=== PATIENT | male | born 1990 | race Caucasian/White ===

== ENCOUNTER 2018-05-03 11:17 | Emergency (ER) | payer SELFPAY ==
[2018-05-03] VITALS (14 sets, daily range): BP systolic 107–133; BP diastolic 71–80; PULSE 63–105; RESP 9–38; TEMP 36.7; O2SAT 99–100
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
[2018-05-03] MEDS: Acetaminophen 500 MG TAB 1000 MG PO (11:45)
[2018-05-03 11:55] LABS: Bilirubin Negative (Negative); Blood Negative (Negative); Clarity Clear; Glucose Negative (Negative); Ketones Negative (Negative); Leukocyte Esterase Negative (Negative); Nitrite Negative (Negative); Urobilinogen 0.2 EU/dL (Up TO 0.2)
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
[2018-05-03 12:07] LABS: *AMPHETAMINES SCREEN URINE Negative (Negative); *BARBITURATES SCREEN URINE Negative (Negative); *BENZODIAZEPINES SCREEN URINE Negative (Negative); Cannabinoids THC POSITIVE (Negative); Cocaine Screen,Urine POSITIVE (Negative); METHADONE URINE SCREEN Negative (Negative); OPIATES URINE SCREEN POSITIVE (Negative); Tricyclic Antidepressants Negative (Negative)
[2018-05-03] MEDS: Omnipaque 350 MG/ML 100 ML BTL IJ (12:22)
[2018-05-03] MEDS: Normal Saline 1,000 ML 1000 ML IV (12:30)
[2018-05-03 12:41] LABS: Abs Immature Grans 0.03 k/cumm (0.0-0.09); Absolute Basophil Count 0.05 k/cumm (0.0-0.2); Absolute Eosinophil Count 0.34 k/cumm (0.0-0.7); Absolute Lymphocyte Count 1.88 k/cumm (1.2-3.4); Absolute Monocyte Count 0.52 k/cumm (0.11-0.7); Absolute Neutrophil Count 5.49 k/cumm (1.2-6.7); Basophils % 0.6; Eosinophils % 4.1; HCT 46.1 % (40.0-50.0); Immature Grans % 0.4; Lymphocytes % 22.6; Mean Corp. HGB Concentration 32.5 g/dL (32.0-36.0); Mean Corpuscular Hemoglobin 30.9 pg (27.0-33.0); Mean Corpuscular Volume 95.1 fL (80-95); Mean Platelet Volume 8.9 fL (8.0-11.0); Monocytes % 6.3; Platelet Count 295 x1000/uL (130-400); RBC 4.85 m/cumm (4.50-6.00); RBC Distribution Width 13.4 % (11.8-14.1); White Blood Cell Count 8.31 k/cumm (4.4-10.8)
[2018-05-03 12:49] LABS: Lipase 179 U/L (73-393)
[2018-05-03 12:54] LABS: ALT 56 U/L (12-78); AST 33 U/L (15-37); Albumin 3.9 g/dL (3.4-5.0); Alkaline Phosphatase 102 U/L (46-116); Amylase 38 U/L (25-115); Anion Gap 6.3 mmol/L (3-11); BUN 11 mg/dL (7-18); Bilirubin, Total 0.6 mg/dL (0.2-1.0); CO2 29.7 mmol/L (21.0-32.0); CREATININE 0.88 mg/dL (0.70-1.30); Calcium 8.9 mg/dL (8.5-10.1); Chloride 102 mmol/L (98-107); Glucose 96 mg/dL (70-100); Potassium 4.2 mmol/L (3.5-5.1); Sodium 138 mmol/L (136-145); Total Protein 7.7 g/dL (6.4-8.2)
[2018-05-03 13:07] LABS: ETHANOL BLOOD < 3.0 mg/dL (<3)
== END 2018-05-03 13:17 | disposition home or self-care (01) ==
LOC: ER 13:40
PROVIDERS: Emergency Provider Student in an Organized Health Care Education/Training Program; PCP Family Medicine
DX: M54.40 Lumbago with sciatica, unspecified side (principal); R20.0 Anesthesia of skin; R20.2 Paresthesia of skin; F14.90 Cocaine use, unspecified, uncomplicated; V47.5XXA Car driver injured in collision with fixed or stationary object in traffic accident, initial encounter
CPT/HCPCS: 74177; 80053; 80307; 83690; 96360; 99285; 70450; 71260; 72125; 73590; 80320; 81003; 82150; 85025; 99284; J3490

== ENCOUNTER 2019-08-26 15:03 | Observation (INO) | payer OTHER, SELFPAY ==
[2019-08-26] VITALS (58 sets, daily range): BP systolic 102–163; BP diastolic 41–88; PULSE 56–100; RESP 8–29; TEMP 36.6–37.1; O2SAT 88–100
--- NOTE | 2019-08-26 15:37 | ED.GENADUL_ITS ---
Discharge Plan Disposition Patient Disposition: [facility] INPATIENT Condition: Fair Discharge Details Chief Complaint: Trauma Clinical Impression: Fracture of thoracic spine, Fracture of lumbar spine, Pneumothorax Admit Date/Time: 08/26/19 18:34 Admit Provider: Odalys Barajas Attending Provider: Odalys Barajas Primary Care Provider: Dayanara Chavez V ED Provider: Mey Alarcon Discharge Data Discharge Date/Time-TO BE ENTERED AT DEPARTURE: 08/26/19 21:15 Medical Decision Making <JOSEPH Romero - Last Filed: 08/28/19 18:29> Is a 29-year-old patient who was at work today when he was on a second story r jovan transitioning from the roofline to the ladder when he missed the ladder and fell approximately 40 feet to the ground. Patient presents via EMS with a collar in place. Patient did receive fentanyl prior to arrival. Patient is on Suboxone And reports taking a 10 mg film this morning. Patient is alert and oriented to person place and time. Patient is complaining of moderate back pain at this time. This is patient's only site of pain. Patient denies loss of consciousness, headache or dizziness. Patient denies vision change or blurred vision. Denies tinnitus. Patient denies any obvious extremity injury. Patient reports falling onto his right side and his back. Patient denies any upper or lower extremity pain, numbness, tingling or weakness. Patient does report mild abdominal pain. Patient denies any other concerns or complaints at this time. Physical exam reveals only focal findings in the back through the thoracic and lumbar spine. Mild periumbilical pain noted on exam without peritoneal signs. Patient has no other focal findings of pain. Plan to paredes scan the patient given his mechanism of injury. Plan to provide additional pain relief as he continues to be uncomfortable despite fentanyl received in route. Patient signed out pending all labs and CT imaging. <JOSEPH Rome - Last Filed: 08/26/19 21:53> Care transition to myself from Cassia Lance PA-C, with imaging and labs pending. Please see her initial documentation regarding presentation, history and exam findings. Labs reviewed, patient has acute leukocytosis with a white count of 15.8. Platelets slightly elevated at 408. Normal coagulation. Potassium slightly low at 3.1. AST slightly elevated at 54, this does appear new for the patient. Total bili slightly elevated at 1.3, has been elevated historically. Imaging reviewed by radiologist: FINDINGS: Lungs: Posterior lung dependent parenchymal changes bilaterally. Peripheral ri ght lung bulla, unchanged from 05/03/2018. Pleural space: No pleural fluid collection. Possible trace right pneumothorax Heart: Unremarkable. No cardiomegaly. No pericardial effusion. Aorta: Unremarkable. No aortic aneurysm. Lymph nodes: Unremarkable. No enlarged lymph nodes. Bones/joints: Acute fracture of the T9 and T10 vertebral bodies. Acute fracture of the L2 vertebral body. Acute fracture of the left transverse process of L1 and L2. Soft tissues: Soft tissue edema anterior to the T9 / 10 levels. IMPRESSION: 1. Acute fracture of the T9 and T10 vertebral bodies. 2. Acute fracture of the L2 vertebral body. 3. Acute fracture of the left transverse process of L1 and L2. 4. Peripheral right lung bulla, unchanged from 05/03/2018. Possible trace right pneumothorax. 5. No pleural fluid collection. FINDINGS: Liver: Normal. No mass. Gallbladder and bile ducts: Normal. No calcified stones. No ductal dilation. Pancreas: Normal. No ductal dilation. Spleen: Normal. No splenomegaly. Adrenals: Normal. No mass. Kidneys and ureters: Normal. No hydronephrosis. Stomach and bowel: Unremarkable. No obstruction. No mucosal thickening. Appendix: No evidence of appendicitis. Intraperitoneal space: Unremarkable. No free air. No significant fluid collection. Vasculature: Unremarkable. No abdominal aortic aneurysm. Lymph nodes: Unremarkable. No enlarged lymph nodes. Bladder: Unremarkable as visualized. Reproductive: Unremarkable as visualized. Bones/joints: Acute fracture of the T9 and T10 vertebral bodies. Acute fracture of the L2 vertebral body. Acute fracture of the left transverse process of L1 and L2. Prominent Schmorl's node of the inferior endplate of L4. Soft tissues: Unremarkable. IMPRESSION: 1. Acute fracture of the T9 and T10 vertebral bodies. 2. Acute fracture of the L2 vertebral body. 3. Acute fracture of the left transverse process of L1 and L2. 4. No acute intra-abdominal or pelvic findings. FINDINGS: Brain: Normal. No hemorrhage. Unremarkable white matter. No mass effect. Ventricles: Normal. No ventriculomegaly. Bones/joints: Unremarkable. No acute fracture. Sinuses: Visualized sinuses are unremarkable. No fluid levels. Mastoid air cells: Visualized mastoid air cells are well aerated. Soft tissues: Unremarkable. IMPRESSION: 1. No acute intracranial findings. 2. No acute fracture. FINDINGS: Vertebrae: No acute fracture. No subluxation. Discs/Spinal canal/Neural foramina: No disc herniations. No spinal canal stenosis. No neural foraminal narrowing. Soft tissues: Unremarkable. Lungs: Small bulla in the right lung apex, unchanged from CT chest 05/03/2018. IMPRESSION: No acute fracture or subluxation. With the findings as above, will consult with trauma at [facility]. This patient does have concern for possible pneumothorax, placed him on nasal cannula oxygen. Spoke with Dr. Parikh with trauma surgery. We discussed narcotic dosing, as suboxone is competative, he advised that patient will need increased dosing. Advised ECG, troponin to evaluate for possible blunt cardiac injury. Advised repeat cxr tomorrow to reasses the patients possible pneumothorax. Advise a TLSO bracing would likely be needed for the spine. We discussed need for transfer to the facility for further evaluation and as they do not expect any emergent need, will consult with our admitting providers here prior to transferring to their facility Consulted with Dr. Ivan with general surgery. She agrees to admission for pain management and to continue to monitor the patient's possible pneumothorax. However, awaiting callback from orthopedics. Patient received an additional 2mg of Dilaudid and 1G IV acetaminophen. Consulted with orthopedics, we are unable to get the recommended TLSO brace until middle of next week, will call [facility] again to discuss possible transfer in the hopes of a more expeditious management for the patient. EKG was obtained when patient initially arrived. This was reviewed by Dr. Villegas. Patient has criteria for LVH. Patient is otherwise in a normal sinus rhythm with a rate of 75. No STEMI noted. Troponin less than 0.05. I discussed transfer with the patient for further evaluation with trauma surgery as well as early bracing. Patient refuses transfer. He prefer to stay here. He does understand that bracing is not possible at this time and that we do not have trauma surgery here. Augmented the patient's above pain management with Toradol. He reports vast improvement rates his pain at a 3 out of 10 at this time. Spoke with orthopedics who advised a abdominal binder may be of benefit in the interim while awaiting TLSO. Spoke with general surgery once again who agrees to admission. At this time, the plan is for the patient to obtain abdominal binder in the interim to help with discomfort. Patient will hopefully be able to be discharged home tomorrow if pain continues to be managed well pending reevaluation of his pneumothorax. Orthopedics will order TLSO brace and he understands that he will receive this as an outpatient. Patient was able to stand at bedside without assistance. Again, patient's pain is well managed. He was transferred up to the floor for continued observation and pain management. HPI <JOSEPH Romero - Last Filed: 08/28/19 18:29> General Date/Time Provider Initiated Documentation: 08/26/19 15:07 . HPI Narrative: This is a 29-year-old patient who fell approximately 2-2 1/2 stories from a ladder when getting off of a roof transitioning to a ladder missed and fell to the ground directly landing on his right side as well as lower back. Patient denies striking head. Denies loss of consciousness. Denies headache, dizziness, nausea, vomiting at this time. Denies any vision change or tinnitus. Patient denies neck pain although is in a cervical collar at this time placed by EMS. Patient reports he was nonambulatory at the scene but denies numbness, tingling or weakness of arms or legs. Patient denies chest pain difficulty beating shortness of breath or wheezing. Denies pain with deep breathing. Patient reports lower back pain as well as anterior mid abdominal pain. Abdominal pain is mild lower back pain is severe reported as 10 out of 10. Patient denies any radiating pain into his legs. Again denies any numbness, tingling or weakness of lower extremities. Patient has no other complaints or concerns at this time. Patient reports he did take Suboxone this morning which he is prescribed to 20 mg film. Denies any other drug or alcohol use today. History of IV heroin use, in recovery. Related Data Home Medications Medication Instructions Recorded Confirmed ibuprofen [IBU] 800 mg PO TID #30 tab 08/27/19 08/28/19 lorazepam 1 mg PO BID PRN #10 tab 08/27/19 08/28/19 oxycodone 5 - 10 mg PO Q4H PRN PRN #30 tab 08/27/19 08/28/19 Previous Rx's Medication Instructions Recorded ibuprofen [IBU] 800 mg PO TID #30 tab 08/27/19 lorazepam 1 mg PO BID PRN #10 tab 08/27/19 oxycodone 5 - 10 mg PO Q4H PRN PRN #30 tab 08/27/19 Allergies Allergy/AdvReac Type Severity Reaction Status Date / Time Sulfa (Sulfonamide Allergy Unknown Unverified 08/28/19 05:22 Antibiotics) gabapentin AdvReac Mild passes out Unverified 08/28/19 05:22 General Stated Complaint: Trauma DOTTIE: 2 Review of Systems <JOSEPH Romero - Last Filed: 08/28/19 18:29> All systems reviewed & are unremarkable except as noted in HPI and below Constitutional Constitutional: Denies fatigue and Denies headache(s) Eyes Eyes: Denies blurry vision, Denies diplopia, Denies loss of vision, Denies other visual disturbances and Denies eye pain ENT Ears, Nose, Mouth, and Throat: Denies otalgia, Denies headache(s), Denies nasal discharge and Denies neck pain Cardiovascular Cardiovascular: Denies chest pain, Denies diaphoresis, Denies palpitations and Denies dyspnea on exertion Respiratory Respiratory: Denies cough and Denies dyspnea on exertion Gastrointestinal Gastrointestinal: Reports abdominal pain, Denies diarrhea, Denies nausea and Denies vomiting Musculoskeletal Musculoskeletal: Denies abnormal gait, Reports back pain, Denies deformity, Denies limited range of motion, Denies neck pain, Denies numbness, Denies radiating pain into limb and Denies tingling Neurologic Neurologic: Denies abnormal speech, Denies abnormal gait, Denies headache(s), Denies lack of coordination, Denies loss of vision, Denies numbness, Denies tingling and Denies paresthesias Endocrine Endocrine: Denies fatigue and Denies palpitations PFSH <JOSEPH Romero - Last Filed: 08/28/19 18:29> Social History Smoking/Tobacco Use Status: Current every day Alcohol Intake: never Drug use: Occasionally Substance use type: former substance user Do you feel safe at home: Yes Do you feel safe in your relationship?: Yes Exam <JOSEPH Romero - Last Filed: 08/28/19 18:29> Narrative Exam Narrative: CONST: Uncomfortable. Well hydrated. Alert and alert. HENMT: Head nomocephalic, normal to inspection. Atraumatic. Nursing staff reports a hematoma was apparent on the right forehead area which is no longer apparent. Hearing grossly normal. External ear canal no erythema or swelling. TM normal bilaterally. Nose normal to inspection. No rhinnorhea. Normal facial exam. Oral mucosa normal. Tounge normal. Dentition normal. Normal posterior oropharynx. Uvula midline. EYES: General normal appearance. Alignment normal. Eyelids normal. Conjunctiva normal. Sclera normal. PERRL. Extraocular movements intact. NECK: Normal visual inspection. No lymphadenopathy. Trachea midline. No Midline tenderness. Cervical collar in place. CHEST: Normal insepection of the chest. No palpable chest pain with palpation. RESP: Normal respiratory effort. Speaking full sentences. No cough. No wheezing. No retractions. Clear to auscaltation. Breath sound equal and present bilaterally. CARDIO: No JVD. Normal PMI. Regular Rate. Regular Rhythm. Normal peripheral pulses. GI: Normal inspection of abdomen. No distension. Soft. Mild periumbilical tenderness.. Bowel sounds present in all 4 quadrants. No rebound. No gaurding. No peritoneal signs MUSCULOSKELETAL: FROM of all extremities. Benign extremity exam. Distal neurovascularly intact. Sensation intact distally. Strength equal bilaterally. Small abrasion noted to the left anterior wick. Back: No notable cervical spine tenderness over the midline. Mild T-spine tenderness over the midline, moderate lumbar tenderness with palpation over the midline. An abrasion is present over the right buttocks posteriorly. SKIN: Normal. Dry. No rashes. NEURO: Alert and awake. Speech clear. PSYCH: Normal affect. Cooperative. Course <JOSEPH Romero - Last Filed: 08/28/19 18:29> Vital Signs Vital signs: Vital Signs Temperature 37.1 C 08/26/19 15:14 Pulse 83 08/26/19 15:14 Respiratory Rate 22 08/26/19 15:14 Blood Pressure 153/69 H 08/26/19 15:14 Pulse Oximetry 96 08/26/19 15:14 Temperature 37.1 C 08/26/19 15:14 Temperature Source Skin 08/26/19 15:14 Pulse 83 08/26/19 15:14 Respiratory Rate 22 08/26/19 15:14 Respiratory Effort Non-Labored 08/26/19 15:26 Respiratory Depth Normal 08/26/19 15:26 Respiratory Pattern Normal 08/26/19 15:26 Blood Pressure 153/69 H 08/26/19 15:14 Blood Pressure Position Supine 08/26/19 15:14 Pulse Oximetry 96 08/26/19 15:14 Oxygen Delivery Method Room Air 08/26/19 15:14 Oxygen Flow Rate 0 08/26/19 15:14 Pain Level 10 08/26/19 15:14 Sign Out <JOSEPH Romero - Last Filed: 08/28/19 18:29> Sign Out Data: Sign Out Comment: Trauma, fell 40ft. C/o abd and back pain. Pending all imaging and labs at sign out. Last updated by Radha Garcia PA at 08/26/19 16:40
[2019-08-26] MEDS: HYDROmorphone 2 MG/ML VIAL 1 MG IVP ×2 (15:54→16:56)
[2019-08-26 15:58] LABS: Abs Immature Grans 0.23 k/cumm (0.0-0.09); HCT 43.1 % (40.0-50.0); HGB 14.5 g/dL (13.5-17.5); Mean Corp. HGB Concentration 33.6 g/dL (32.0-36.0); Mean Corpuscular Hemoglobin 30.8 pg (27.0-33.0); Mean Corpuscular Volume 91.5 fL (80-95); Mean Platelet Volume 9.3 fL (8.0-11.0); Platelet Count 408 x1000/uL (130-400); RBC 4.71 m/cumm (4.50-6.00); RBC Distribution Width 12.5 % (11.8-14.1); White Blood Cell Count 15.81 k/cumm (4.4-10.8)
[2019-08-26 16:17] LABS: PTT Activated 25.8 sec (21.0-31.4); Prothrombin Time 9.9 sec (9.3-11.0)
--- NOTE | 2019-08-26 16:17 | DI.CT_ITS ---
EXAM: CT HEAD CERVICAL SPINE WO CLINICAL HISTORY: trauma, fell 40 ft. TECHNIQUE: Imaging Protocol: Axial computed tomography images with coronal and sagittal reformatted images were created and reviewed COMPARISON: CT HEAD CERVICAL SPINE WO from 05/03/2018 FINDINGS: Head CT Ventricles and Extra axial spaces: Normal in size and morphology for the patient's age. Hemorrhage: None. Cerebral parenchyma: Normal. Midline shift: None. Brainstem/Cerebellum: Normal. Calvarium: Normal. Visualized Paranasal sinuses/Mastoids: Clear. IMPRESSION: No acute abnormality. FINDINGS: Cervical Spine CT BONES: Vertebral body heights are maintained. Intervertebral disc spaces are normal. Alignment is nor mal. There is no evidence of acute fracture. SOFT TISSUES: No paraspinal hematoma. The airway appears intact. No significant degenerative disc changes and facet degenerative changes are seen . IMPRESSION: Degenerative changes, no acute abnormality. DATA REPOSITORY: All CT scans at this facility are submitted to the National Radiology Data Registry (NRDR) Dose Index Registry (DIR) with the [employer] (ACR). RADIATION OPTIMIZATION: All CT scans at this facility use at least one of these dose optimization te chniques: automated exposure control; mA and/or kV adjustment per patient size (includes targeted exa ms where dose is matched to clinical indication); or iterative reconstruction.
--- NOTE | 2019-08-26 16:23 | DI.CT_ITS ---
EXAM: CT CHEST/ABD/PEL W CLINICAL HISTORY: pain, abd and lower back, fell 40 ft, trauma TECHNIQUE: Post IV and without oral contrast. COMPARISON: from 05/03/2018 FINDINGS: Chest CT: The heart and great vessels appear intact. There are no pleural or pericardial effusions . There is a tiny right pneumothorax. A right apical bulla is noted. There are posterior dependent changes in both lungs. No displaced rib fractures are seen. There is a mild compression fracture o f T9 and T10. There are no retropulsed fragments or posterior element involvement. There is a small amount of paraspinal hematoma at these levels. Abdomen/pelvic CT: There are fractures of the left transverse processes of L1 and L2. There is a fra cture of the anterior superior corner of the L2 vertebral body. No pelvic or proximal femoral fractu res are seen. There is some streak artifact secondary to patient's arm positioning. No liver, splen ic, renal or pancreatic injury is identified. The adrenals are unremarkable. There is no free air o r free fluid. No bowel wall thickening or dilatation is seen. The great vessels appear intact. Americo dder is intact. IMPRESSION: 1. Tiny right pneumothorax. T9-T10 vertebral body fractures. 2. Fracture of the L2 vertebral body as well as the left transverse processes of L1 and L2. No abdom inal organ injury is identified.
[2019-08-26 16:24] LABS: ALT 40 U/L (16-63); AST 54 U/L (15-37); Albumin 4.6 g/dL (3.4-5.0); Alkaline Phosphatase 105 U/L (46-116); Anion Gap 9.7 mmol/L (3-11); BUN 9 mg/dL (7-18); Bilirubin, Total 1.3 mg/dL (0.2-1.0); CO2 30.3 mmol/L (21.0-32.0); CREATININE 0.83 mg/dL (0.70-1.30); Calcium 8.8 mg/dL (8.5-10.1); Chloride 102 mmol/L (98-107); Glucose 147 mg/dL (74-106); Potassium 3.1 mmol/L (3.5-5.1); Sodium 142 mmol/L (136-145); Total Protein 7.4 g/dL (6.4-8.2)
[2019-08-26] MEDS: Omnipaque 350 MG/ML 100 ML BTL IJ (16:25)
[2019-08-26 16:26] LABS: Absolute Eosinophil Count 0.16 k/cumm (0.0-0.7); Absolute Lymphocyte Count 2.69 k/cumm (1.2-3.4); Absolute Monocyte Count 0.79 k/cumm (0.11-0.7); Absolute Neutrophil Count 12.02 k/cumm (1.2-6.7); Atypical Lymphocytes % 2
[2019-08-26 16:27] LABS: Diff Comment Manual Differential; RBC Morphology Normal
--- NOTE | 2019-08-26 16:52 | DI.VRAD_ITS ---
Addendum created by Felix Harmon MD on 08/26/2019 5:49:09 PM EST On the sagittal images, acute nondisplaced fracture of L3. Only mild loss of height of T9. No encroachment on the thoracic or lumbar spinal canal. Examination results of the patient were discussed with Mey Amaral on 08/26/2019 at 5:48 PM EST [employer]. Initial report created on 08/26/2019 4:51:14 PM EST PROCEDURE INFORMATION: Exam: CT Chest With Contrast Exam date and time: 08/26/2019 4:21 PM Age: 29 years old Clinical indication: Low back pain, Fall from 40+ feet TECHNIQUE: Imaging protocol: Computed tomography of the chest with intravenous contrast. COMPARISON: CT Private^TRAUMA CAP (Adult) 05/03/2018 11:50 AM FINDINGS: Lungs: Posterior lung dependent parenchymal changes bilaterally. Peripheral right lung bulla, unchanged from 05/03/2018. Pleural space: No pleural fluid collection. Possible trace right pneumothorax Heart: Unremarkable. No cardiomegaly. No pericardial effusion. Aorta: Unremarkable. No aortic aneurysm. Lymph nodes: Unremarkable. No enlarged lymph nodes. Bones/joints: Acute fracture of the T9 and T10 vertebral bodies. Acute fracture of the L2 vertebral body. Acute fracture of the left transverse process of L1 and L2. Soft tissues: Soft tissue edema anterior to the T9 / 10 levels. IMPRESSION: 1. Acute fracture of the T9 and T10 vertebral bodies. 2. Acute fracture of the L2 vertebral body. 3. Acute fracture of the left transverse process of L1 and L2. 4. Peripheral right lung bulla, unchanged from 05/03/2018. Possible trace right pneumothorax. 5. No pleural fluid collection. PROCEDURE INFORMATION: Exam: CT Abdomen And Pelvis With Contrast Exam date and time: 08/26/2019 4:21 PM Age: 29 years old Clinical indication: Low back pain, Fall from 40+ feet TECHNIQUE: Imaging protocol: Computed tomography of the abdomen and pelvis with intravenous contrast. COMPARISON: CT Private^TRAUMA CAP (Adult) 05/03/2018 11:50 AM FINDINGS: Liver: Normal. No mass. Gallbladder and bile ducts: Normal. No calcified stones. No ductal dilation. Pancreas: Normal. No ductal dilation. Spleen: Normal. No splenomegaly. Adrenals: Normal. No mass. Kidneys and ureters: Normal. No hydronephrosis. Stomach and bowel: Unremarkable. No obstruction. No mucosal thickening. Appendix: No evidence of appendicitis. Intraperitoneal space: Unremarkable. No free air. No significant fluid collection. Vasculature: Unremarkable. No abdominal aortic aneurysm. Lymph nodes: Unremarkable. No enlarged lymph nodes. Bladder: Unremarkable as visualized. Reproductive: Unremarkable as visualized. Bones/joints: Acute fracture of the T9 and T10 vertebral bodies. Acute fracture of the L2 vertebral body. Acute fracture of the left transverse process of L1 and L2. Prominent Schmorl's node of the inferior endplate of L4. Soft tissues: Unremarkable. IMPRESSION: 1. Acute fracture of the T9 and T10 vertebral bodies. 2. Acute fracture of the L2 vertebral body. 3. Acute fracture of the left transverse process of L1 and L2. 4. No acute intra-abdominal or pelvic findings. Dictated and Authenticated by: Felix Harmon MD. Ordering:STACY Garcia MD
--- NOTE | 2019-08-26 16:59 | DI.VRAD_ITS ---
PROCEDURE INFORMATION: Exam: CT Head Without Contrast Exam date and time: 08/26/2019 4:16 PM Age: 29 years old Clinical indication: Injury; Initial encounter; Blunt trauma; Fall from 40+ feet TECHNIQUE: Imaging protocol: Computed tomography of the head without contrast. COMPARISON: CT HEAD CERVICAL SPINE WO 05/03/2018 11:45 AM FINDINGS: Brain: Normal. No hemorrhage. Unremarkable white matter. No mass effect. Ventricles: Normal. No ventriculomegaly. Bones/joints: Unremarkable. No acute fracture. Sinuses: Visualized sinuses are unremarkable. No fluid levels. Mastoid air cells: Visualized mastoid air cells are well aerated. Soft tissues: Unremarkable. IMPRESSION: 1. No acute intracranial findings. 2. No acute fracture. PROCEDURE INFORMATION: Exam: CT Cervical Spine Without Contrast Exam date and time: 08/26/2019 4:16 PM Age: 29 years old Clinical indication: Injury; Initial encounter; Blunt trauma; Fall from 40+ feet TECHNIQUE: Imaging protocol: Computed tomography images of the cervical spine without contrast. COMPARISON: CT HEAD CERVICAL SPINE WO 05/03/2018 11:45 AM FINDINGS: Vertebrae: No acute fracture. No subluxation. Discs/Spinal canal/Neural foramina: No disc herniations. No spinal canal stenosis. No neural foraminal narrowing. Soft tissues: Unremarkable. Lungs: Small bulla in the right lung apex, unchanged from CT chest 05/03/2018. IMPRESSION: No acute fracture or subluxation. Dictated and Authenticated by: Felix Harmon MD. Ordering:STACY Garcia MD
[2019-08-26] MEDS: HYDROmorphone 2 MG/ML VIAL IVP ×3 (17:35→20:52)
[2019-08-26] MEDS: ACETAMINOPHEN 1,000 MG/100 ML BTL 400 MG IVPB (17:45)
[2019-08-26] MEDS: HYDROmorphone 2 MG/ML VIAL (17:46)
[2019-08-26 17:53] LABS: Troponin I < 0.05 ng/Ml (<0.06)
[2019-08-26] MEDS: Ketorolac 30 MG/ML VIAL IVP (18:22)
[2019-08-26] MEDS: Nicotine 21 MG/24 HR PATCH TD (19:02)
--- NOTE | 2019-08-26 20:35 | NUR.NOTE ---
1900- reassessment shows pt with sao2 of 88% room air and decreased/very difficult to hear lung sounds to RLL. pt denies SOA, no respiratory distress noted. pt does voice pain to lungs with inspiration. IS given to pt with instructions on use with pt returning demonstration. o2/NC/2l placed with JOSEPH Mathias bedside. no distress noted. Nursing Note:
--- NOTE | 2019-08-26 20:38 | NUR.NOTE ---
[id number] JOSEPH Mathias administer 2mg Dilaudid IV and 2 tabs PO oxycodone now per admission orders prior to transferring pt to med surg. pt will be medicated and transfered now.
[2019-08-26] MEDS: oxyCODONE 5 MG TAB (20:51)
--- NOTE | 2019-08-26 21:00 | NUR.NOTE ---
abdominal binder placed without incident pt tolerated well. Nursing Note:
[2019-08-26] MEDS: Lactated Ringers 1,000 ML 30 ML IV (21:56)
[2019-08-26] MEDS: oxyCODONE 10 MG TAB PO (22:04)
[2019-08-27] MEDS: HYDROmorphone 2 MG/ML VIAL IVP ×4 (03:20→10:52)
[2019-08-27 03:25] VITALS: BP 132/82; PULSE 73; RESP 17; TEMP 36.6; O2SAT 98
[2019-08-27 07:14] LABS: Abs Immature Grans 0.02 k/cumm (0.0-0.09); Absolute Basophil Count 0.01 k/cumm (0.0-0.2); Absolute Eosinophil Count 0.04 k/cumm (0.0-0.7); Absolute Lymphocyte Count 1.63 k/cumm (1.2-3.4); Absolute Monocyte Count 0.65 k/cumm (0.11-0.7); Basophils % 0.1; Eosinophils % 0.4; HCT 41.2 % (40.0-50.0); HGB 13.5 g/dL (13.5-17.5); Immature Grans % 0.2 %; Lymphocytes % 17.2; Mean Corp. HGB Concentration 32.8 g/dL (32.0-36.0); Mean Corpuscular Hemoglobin 30.5 pg (27.0-33.0); Mean Corpuscular Volume 93.2 fL (80-95); Mean Platelet Volume 9.8 fL (8.0-11.0); Monocytes % 6.8; Neutrophils % 75.3; Platelet Count 320 x1000/uL (130-400); RBC 4.42 m/cumm (4.50-6.00); RBC Distribution Width 12.8 % (11.8-14.1); White Blood Cell Count 9.49 k/cumm (4.4-10.8)
[2019-08-27 07:16] LABS: Absolute Neutrophil Count 7.15 k/cumm (1.2-6.7)
[2019-08-27 07:22] VITALS: BP 134/74; PULSE 71; RESP 17; TEMP 37.4; O2SAT 98
[2019-08-27 07:26] LABS: BUN 8 mg/dL (7-18); CREATININE 0.73 mg/dL (0.70-1.30); Calcium 8.3 mg/dL (8.5-10.1); Chloride 105 mmol/L (98-107); Glucose 111 mg/dL (74-106); Potassium 3.9 mmol/L (3.5-5.1); Sodium 142 mmol/L (136-145)
--- NOTE | 2019-08-27 08:02 | PDOC.CMIN ---
- If Service Date Differs Date of service: 08/27/19 Time of Service: 08:02 Care Management Initial Assess REASON FOR HOSPITALIZATION:: Fall with fracture T9,T10, L1 and L2 PAST MEDICAL HISTORY/PAST SURGICAL HISTORY:: No significant past medical or surgical history documented. PREVIOUS FUNCTIONAL STATUS/SOCIAL/FAMILY SUPPORTS:: Nikita lives in a transition house in [facility] with 4 other people.He works for [employer] which is where his injury occurred. Nikita has 2 brothers and 2 sisters. His father is his main support . His mother of skin cancer. Nikita is independent with all care and activities. CURRENT FUNCTIONAL STATUS:: Nikita was sitting up in bed when CM met with him. He was polite and answered questions but did not volunteer much additinal information. He shared that he believes he will neeed to be in the hospital until mid-week when he will be able to get a TLSO brace. He stated that he is having a lot of pain but that when he is still, it is tolerable. He stated he had just returned from Radiology and had been required to move a lot which increased his discomfort. ADVANCE DIRECTIVES:: none on file Has patient been provided with information about the portal?: No Did the patient sign up for the portal?: No CODE STATUS:: Full Code INSURANCE COVERAGE / FINANCIAL ISSUES:: Self pay CURRENT HOME/COMMUNITY SERVICES/EQUIPMENT:: None currently. Will need a back brace before discharge. PRIMARY CARE PHYSICIAN:: Dayanara Chavez POTENTIAL DISCHARGE NEEDS:: Nikita needs a back brace and follow up with his PCP and discharge plan of care PATIENT/FAMILY EDUCATION NEEDS:: Discharge plan, limitations, follow up plan, Ask me Three TRANSPORTATION:: via private vehicle with family when ready. PLAN:: Nikita will be discharged home with no new services. He will follow up with his providers and discharge plan of care. He will likely be referred to the pain clinic for management of his symptoms. CM will continue to support patient and his discharge planning needs.
[2019-08-27] MEDS: oxyCODONE 10 MG TAB PO (08:28)
[2019-08-27] MEDS: Nicotine 14 MG/24 HR PATCH TD (08:29)
[2019-08-27] MEDS: Normal Saline Flush 10 ML SYR IVP (08:30)
--- NOTE | 2019-08-27 08:57 | DI.RAD_ITS ---
EXAM: XR CHEST 2V PA LATERAL INDICATION: Right pneumothorax. COMPARISON: No exams were available for comparison TECHNIQUE: 2D digital imaging was performed. FINDINGS: There are increased densities in the posterior lung bases as seen on prior CT. No pneumothorax is v isible. No air is seen outside the chest wall. The heart size is normal. Compression fractures of the T9 and T10 vertebral bodies are unchanged from previous CT. IMPRESSION: Persistent posterior basilar atelectasis. No pneumothorax is visible.
--- NOTE | 2019-08-27 09:21 | DI.VRAD_ITS ---
PROCEDURE INFORMATION: Exam: XR Chest, 2 Views Exam date and time: 08/27/2019 9:03 AM Age: 29 years old Clinical indication: Other: Right pneumothorax; Additional info: Right pneumothorax f/u on images done yesterday TECHNIQUE: Imaging protocol: XR of the chest Views: 2 views. COMPARISON: CT CHEST/ABD/PEL W 08/26/2019 4:23:53 PM CR CHEST 2 VIEWS PA,LAT 02/16/2018 8:39 AM FINDINGS: Lungs: Bibasilar/posterior lower lobe opacities with blunting of the costophrenic angles may represent parenchymal changes previously seen on recent CT. Cannot entirely exclude small pleural effusions. No pneumothorax. Pleural space: See Lungs Finding. Heart/Mediastinum: Unremarkable. No cardiomegaly. Bones/joints: Compression deformities of T9 and T10 vertebral bodies previously seen on recent CT. IMPRESSION: 1. Bibasilar/posterior lower lobe opacities with blunting of the costophrenic angles may represent parenchymal changes previously seen on recent CT. Cannot entirely exclude small pleural effusions. No pneumothorax. 2. Compression deformities of T9 and T10 vertebral bodies previously seen on recent CT. Dictated and Authenticated by: Migel Gallegos MD. Ordering:CHASE Morrow MD
--- NOTE | 2019-08-27 10:28 | W.PM.HP.N ---
Date of service: 08/27/19 Time of Service: 10:28 Assessment and Plan Assessment and plan (1) Fall: Status: Acute Assessment and plan: A possible small right pneumothorax was noted on CT. His CXR today does not show any pneumothorax and his exam is normal. The patient has not identified any new areas of pain. Qualifiers: Encounter type: initial encounter Qualified Code(s): W19.XXXA - Unspecified fall, initial encounter (2) Fracture of body of vertebra: Status: Acute Assessment and plan: The main issue will be pain control. I have added ibuprofen and ativan. Once this is managed he can be discharged. A TLSO brace will be ordered by orthopedics. For now the patient is getting some comfort from the abdominal binder. A referral will be made to the pain clinic. History of Present Illness Narrative: This patient fell off a roof, falling 2-1/2 stories, and landed on a packed snow/ice surface yesterday afternoon. He immediately complained of back pain. He did not have any loss of consciousness or any other obvious injuries. Evaluation in the emergency department with a CT scan of the head, neck, chest abdomen and pelvis, thoracic and lumbar spine revealed injuries of the vertebral bodies of T9/T10 as well as L2/L3. There is no encroachment of the spinal column and the patient does not have any neurologic complaints. He also had fractures of the L1/L2 transverse processes. Today he reports no new symptoms. He has no blurry vision. He did have a small bite of his lower lip but otherwise no jaw or teeth complaints. He is having no shortness of breath, no abdominal pain. He is tolerating a diet without nausea or vomiting. He reports no extremity weakness or tingling. Review of Systems Constitutional Constitutional: Denies fatigue and Denies headache(s) Eyes Eyes: Denies change in vision ENT Ears, Nose, Mouth, and Throat: Denies headache(s) and Denies neck mass Cardiovascular Cardiovascular: Denies chest pain, Denies edema, Denies palpitations and Denies dyspnea Respiratory Respiratory: Denies cough, Denies dyspnea and Denies wheezing Gastrointestinal Gastrointestinal: Denies abdominal pain, Denies hematochezia and Denies change in bowel habits Genitourinary Genitourinary: Denies dysuria Musculoskeletal Musculoskeletal: Denies joint swelling Integumentary/Breasts Skin/Breast: Denies new lesions and Denies rash Neurologic Neurologic: Denies confusion, Denies headache(s) and Denies focal weakness Psychiatric Psychiatric: Reports system reviewed and no additional complaints, except as docu and Denies confusion Endocrine Endocrine: Denies fatigue and Denies palpitations Hematologic/Lymphatic Hematologic/Lymphatic: Denies easy bleeding and Denies lymphadenopathy Allergic/Immunologic Allergic/Immunologic: Denies wheezing PFSH Social History Smoking/Tobacco Use Status: Current every day Alcohol Intake: never Drug use: Occasionally Substance use type: former substance user Do you feel safe at home: Yes Do you feel safe in your relationship?: Yes Meds Home Medications and Allergies Home Medications Medication Instructions Recorded Confirmed Type buprenorphine-naloxone [Suboxone] 20 film SUBLINGUAL DAILY 08/26/19 08/26/19 History Allergies Allergy/AdvReac Type Severity Reaction Status Date / Time Sulfa (Sulfonamide Allergy Unknown Unverified 08/26/19 15:21 Antibiotics) gabapentin AdvReac Mild passes out Unverified 08/26/19 15:21 Exam Narrative Exam Narrative: Alert PERRLA No cervical spine tenderness. Jaw is aligned Lungs CTA bilaterally although deep inspiration causes pain Heart RRR Abdomen soft, nontender, atraumatic No focal neurologic deficits Results Labs Result diagrams: 08/27/19 06:12 08/27/19 06:12 Labs: Laboratory Results - last 24 hr 08/26/19 08/26/19 08/26/19 15:40 15:40 15:40 WBC 15.81 H RBC 4.71 Hgb 14.5 Hct 43.1 MCV 91.5 MCH 30.8 MCHC 33.6 RDW 12.5 Plt Count 408 H MPV 9.3 Immature Gran % See Differential Neutrophils % 74.0 Band Neutrophils % 2.0 Lymphocytes % 15.0 Atypical Lymphs % 2 Monocytes % 5.0 Eosinophils % 1.0 Basophils % 0.0 Metamyelocytes % 1.0 Absolute Neutrophils 12.02 H Absolute Lymphocytes 2.69 Absolute Monocytes 0.79 H Absolute Eosinophils 0.16 Absolute Basophils 0.00 Differential Comment Manual differential RBC Morphology Normal PT 9.9 INR 1.0 APTT 25.8 Sodium 142 Potassium 3.1 L Chloride 102 Carbon Dioxide 30.3 Anion Gap 9.7 BUN 9 Creatinine 0.83 Estimated GFR/1.73 m2 >= 60.00 Glucose 147 H Calcium 8.8 Total Bilirubin 1.3 H AST 54 H ALT 40 Alkaline Phosphatase 105 Troponin I Total Protein 7.4 Albumin 4.6 Patient ABO/Rh Antibody Screen 08/26/19 08/26/19 08/27/19 15:40 15:40 06:12 WBC RBC Hgb Hct MCV MCH MCHC RDW Plt Count MPV Immature Gran % Neutrophils % Band Neutrophils % Lymphocytes % Atypical Lymphs % Monocytes % Eosinophils % Basophils % Metamyelocytes % Absolute Neutrophils Absolute Lymphocytes Absolute Monocytes Absolute Eosinophils Absolute Basophils Differential Comment RBC Morphology PT INR APTT Sodium 142 Potassium 3.9 D Chloride 105 Carbon Dioxide 28.0 Anion Gap 9.0 BUN 8 Creatinine 0.73 Estimated GFR/1.73 m2 >= 60.00 Glucose 111 H Calcium 8.3 L Total Bilirubin AST ALT Alkaline Phosphatase Troponin I < 0.05 Total Protein Albumin Patient ABO/Rh O Positive Antibody Screen Negative 08/27/19 06:12 WBC 9.49 D RBC 4.42 L Hgb 13.5 Hct 41.2 MCV 93.2 MCH 30.5 MCHC 32.8 RDW 12.8 Plt Count 320 MPV 9.8 Immature Gran % 0.2 Neutrophils % 75.3 Band Neutrophils % Lymphocytes % 17.2 Atypical Lymphs % Monocytes % 6.8 Eosinophils % 0.4 Basophils % 0.1 Metamyelocytes % Absolute Neutrophils 7.15 H Absolute Lymphocytes 1.63 Absolute Monocytes 0.65 Absolute Eosinophils 0.04 Absolute Basophils 0.01 Differential Comment RBC Morphology PT INR APTT Sodium Potassium Chloride Carbon Dioxide Anion Gap BUN Creatinine Estimated GFR/1.73 m2 Glucose Calcium Total Bilirubin AST ALT Alkaline Phosphatase Troponin I Total Protein Albumin Patient ABO/Rh Antibody Screen Last Vital Signs Temp 99.3 F 08/27/19 07:22 Pulse 71 08/27/19 07:22 Resp 17 08/27/19 07:22 BP 134/74 08/27/19 07:22 Pulse Ox 98 08/27/19 07:22
[2019-08-27 10:47] VITALS: O2SAT 94
[2019-08-27] MEDS: Acetaminophen 325 MG TAB 650 MG PO (10:53)
[2019-08-27 11:47] VITALS: BP 134/69; PULSE 78; RESP 14; TEMP 37.2; O2SAT 92
[2019-08-27] MEDS: Ibuprofen 800 MG TAB PO (14:20)
[2019-08-27] MEDS: oxyCODONE 5 MG TAB PO (14:21)
[2019-08-27 16:09] VITALS: BP 126/80; PULSE 74; RESP 18; TEMP 37.2; O2SAT 96
--- NOTE | 2019-08-27 16:43 | W.PM.DS.N ---
Date of service: 08/27/19 Time of Service: 16:44 DS: Diagnosis Discharge Diagnosis (1) Fall: Status: Acute (2) Fracture of body of vertebra: Status: Acute Discharge Plan Disposition Patient Disposition: HOME Condition: Fair Discharge Details Chief Complaint: Trauma Clinical Impression: Fracture of thoracic spine, Fracture of lumbar spine, Pneumothorax Reason For Visit: FALL Admit Date/Time: 08/26/19 18:34 Admit Provider: Odalys Barajas Attending Provider: Odalys Barajas Primary Care Provider: Dayanara Chavez V ED Provider: Mey Alarcon Hospital Course Hospital Course: The patient was admitted for observation after a fall due to a possible small right pneumothorax and pain management. The day after the fall he had no new complaints. He did continue to have mid to low back pain. Follow up CBC and chest Xray were normal. He will be discharged with follow up plans with orthopedics for a TLSO brace. Home Meds and New Rx's Prescriptions: New ibuprofen [IBU] 800 mg Tablet 800 mg PO TID Qty: 30 RF: 0 lorazepam 1 mg Tablet 1 mg PO BID PRN (Reason: muscle spasm) Qty: 10 RF: 0 oxycodone 5 mg Tablet 5 - 10 mg PO Q4H PRN PRNQty: 30 RF: 0 Discontinued buprenorphine-naloxone [Suboxone] 12-3 mg Film 20 film sublingual DAILY RF: 0 Discharge Instructions Additional Instructions: Call for any concerns including fever, increased pain, vomiting, or any new symptoms. Do not lift more than 15 pounds for two weeks. Walking and stairs are fine. Do not drive if on narcotic pain meds or if limited by pain. May use Tylenol alternating with ibuprofen for pain control. Ice is also an option. The maximum dose for Tylenol is 4000 mg/day. May use ibuprofen 800 mg every 8 hours as needed. If concerned about constipation, you may use a stool softener or milk of magnesia. Referrals: Misha Davis MD [ [facility] STAFF PHYSICIAN] - (Early this week for TLSO brace) Activity:: Do not lift more than 15 pounds until evaluation by orthopedics Equipment/Supplies:: Wear abdominal binder as needed for comfort Diet:: As Tolerated Discharge Orders Discharge Orders: Discharge Order (Routine); Ordered 08/27/19 Ordered By: Odalys Barajas DS: Summary Status at Discharge Functional status at discharge: independent ambulation Overall status at discharge: patient is progressing back to baseline Mental Status: mental status grossly normal Speech and Movement: speech and movement normal Mood: congruent mood Affect: normal affect Exam Psych Mental Status: mental status grossly normal Speech and Movement: speech and movement normal Mood: congruent mood Affect: normal affect DS: Data Vitals/I&O Vitals and I&O: Vital Signs Temperature 99.0 F 08/27/19 16:09 Temperature Source Tympanic 08/27/19 16:09 Pulse 74 08/27/19 16:09 Pulse Rhythm Regular 08/27/19 08:30 Pulse 69 08/26/19 20:31 Respiratory Rate 18 08/27/19 16:09 Respiratory Effort Non-Labored 08/27/19 08:30 Respiratory Depth Normal 08/27/19 08:30 Respiratory Pattern Normal 08/27/19 08:30 Blood Pressure 126/80 08/27/19 16:09 Blood Pressure Mean 69 08/26/19 20:31 Blood Pressure Position Supine 08/26/19 15:14 Pulse Oximetry 96 08/27/19 16:09 Oxygen Delivery Method Room Air 08/27/19 16:09 Oxygen Flow Rate 0 08/27/19 16:09 Pain Level 5 08/27/19 16:09 Comment 08/27/19 16:09 Intake & Output 08/26/19 08/27/19 08/27/19 23:59 11:59 23:59 Intake Total 340 / 340 Output Total 550 / 550 400 / 400 Balance -210 / -210 -400 / -400 Weight 181 lb 10.574 oz Intake: IV 100 / 100 Oral 240 / 240 Output: Urine 550 / 550 400 / 400 Other: Urine Color Yellow Urine Appearance Clear Voiding Methods Urinal Data Completed and Pending Labs on day of discharge: Labs from last 24 hours 08/27/19 08/27/19 08/26/19 06:12 06:12 15:40 WBC 9.49 D RBC 4.42 L Hgb 13.5 Hct 41.2 MCV 93.2 MCH 30.5 MCHC 32.8 RDW 12.8 Plt Count 320 MPV 9.8 Immature Gran % 0.2 Neutrophils % 75.3 Lymphocytes % 17.2 Monocytes % 6.8 Eosinophils % 0.4 Basophils % 0.1 Absolute Neutrophils 7.15 H Absolute Lymphocytes 1.63 Absolute Monocytes 0.65 Absolute Eosinophils 0.04 Absolute Basophils 0.01 Sodium 142 Potassium 3.9 D Chloride 105 Carbon Dioxide 28.0 Anion Gap 9.0 BUN 8 Creatinine 0.73 Estimated GFR/1.73 m2 >= 60.00 Glucose 111 H Calcium 8.3 L Troponin I < 0.05 Patient ABO/Rh Antibody Screen 08/26/19 15:40 WBC RBC Hgb Hct MCV MCH MCHC RDW Plt Count MPV Immature Gran % Neutrophils % Lymphocytes % Monocytes % Eosinophils % Basophils % Absolute Neutrophils Absolute Lymphocytes Absolute Monocytes Absolute Eosinophils Absolute Basophils Sodium Potassium Chloride Carbon Dioxide Anion Gap BUN Creatinine Estimated GFR/1.73 m2 Glucose Calcium Troponin I Patient ABO/Rh O Positive Antibody Screen Negative [facility] Social History Smoking/Tobacco Use Status: Current every day Alcohol Intake: never Drug use: Occasionally Substance use type: former substance user Do you feel safe at home: Yes Do you feel safe in your relationship?: Yes
--- NOTE | 2019-08-27 19:02 | NUR.NOTE ---
6 TABS OF OXYCODONE 5MG TAKING OUT OF THE PYXIS AND GIVEN TO DR NIETO IN THE ER TO DISPENSE TO THE PATIENT.:
[2019-08-29 07:24] VITALS: BP 131/71; PULSE 72; RESP 14; TEMP 36.8; O2SAT 95
== END 2019-08-27 18:05 | disposition home or self-care (01) ==
LOC: ER 18:50 → MS 21:11
PROVIDERS: Physician Assistant; Admitting Provider Surgery; Emergency Provider Physician Assistant; PCP Family Medicine; Visit Provider Surgery
DX: S22.070A Wedge compression fracture of T9-T10 vertebra, initial encounter for closed fracture (principal); S32.018A Other fracture of first lumbar vertebra, initial encounter for closed fracture; S27.0XXA Traumatic pneumothorax, initial encounter; S32.028A Other fracture of second lumbar vertebra, initial encounter for closed fracture; W13.2XXA Fall from, out of or through roof, initial encounter; F17.210 Nicotine dependence, cigarettes, uncomplicated; F11.20 Opioid dependence, uncomplicated; J98.11 Atelectasis; Z23 Encounter for immunization
CPT/HCPCS: 36415; 74177; 80048; 80053; 86850; 86900; 86901; 90471; 93005; 96365; 96375; 96376; 99223; 99238; 99285; 70450; 71046; 71260; 72125; 84484; 85025; 85610; 85730; 93010; 99281; G0378; J0131; J1885; J3490

== ENCOUNTER 2019-08-28 05:16 | Observation (INO) | payer OTHER, MEDICAID, SELFPAY ==
[2019-08-28] VITALS (7 sets, daily range): BP systolic 112–150; BP diastolic 71–88; PULSE 54–72; RESP 16–20; TEMP 36.5–37.7; O2SAT 96–98
--- NOTE | 2019-08-28 05:31 | ED.GENADUL_ITS ---
Discharge Plan Disposition Patient Disposition: [facility] INPATIENT Condition: Serious Discharge Details Chief Complaint: Nk/Back Pain Clinical Impression: Spinal fracture, Back pain due to injury Admit Date/Time: 08/28/19 06:14 Admit Provider: Hipolito Benjamin Attending Provider: Nikita Farley Primary Care Provider: Dayanara Chavez V ED Provider: Wojciech Wilcox Hospital Course Hospital Course: This is a 29 year old patient who fell off a roof, falling 2-1/2 stories, and landed on a packed snow/ice surface. He immediately complained of back pain. He did not have any loss of consciousness or any other obvious injuries. Evaluation in the emergency department with a CT scan of the head, neck, chest abdomen and pelvis, thoracic and lumbar spine revealed injuries of the vertebral bodies of T9/T10 as well as L2/L3. There is no encroachment of the spinal column and the patient does not have any neurologic complaints. He also had fractures of the L1/L2 transverse processes. He was referred to observation under surgery and was placed on oral narcotics. He was discharged to home when deemed stable but was unable to fill his prescription as pharmacies where closed. He returned to the ED to brick picker some oral tablets to get him through the night but pain not managed so he was referred again to observation, this time under hospitalist services for pain management. Orthopedics was consulted and he was fitted for a TLSO brace. He was seen by physical therapy and has been reambulated without difficulty. He is having no shortness of breath, no abdominal pain. He is tolerating a diet without nausea or vomiting. He reports no extremity weakness or tingling. He had some constipation which was relieved with bowel management. His brace has arrived and he was instructed by PT. he is to be discharged to home with no new services. he should continue pain regimen as previously directed. he was given prescriptions at discharge previously so no new prescriptions given. he is to follow up with orthopedics in 3-4 weeks and with pcp sooner. Discharge Instructions Instructions: Thoracolumbar Fracture (DC), Clamshell Brace (DC) Forms: Nursing Discharge Form Referrals: Dayanara Chavez MD [Primary Care Provider] - 09/05/19 8:15 am Misha Davis MD [ [facility] STAFF PHYSICIAN] - 09/25/19 2:30 pm Discharge Data Discharge Date/Time-TO BE ENTERED AT DEPARTURE: 08/28/19 06:50 Medical Decision Making 5:40 --29-year-old male here with low back pain having recently been discharged yesterday evening after admission for traumatic injury including spinal fracture. Patient is neurologically intact. Patient is not able to ambulate. CT back 08/26/19 revealed acute fracture of the T9 and T10 vertebral bodies, acute fracture of the L2 vertebral body, acute fracture of the left transverse process of L1 and L2, acute nondisplaced fracture of L3. Only mild loss of height of T9. No encroachment on the thoracic or lumbar spinal canal. A questionable pneumothorax was noted on CT chest. Repeat cxr 08/27/19 demonstrated no pneumothorax. Will attempt to optimize pain management. Lidocaine patch applied. Dilaudid 1mg IV. Toradol 1mg IV. Plan to reassess. 6:00 -- Spoke with Dr. Peterson - discussed ED presentation and prior diagnostic findings - he recommends nonoperative pain management and will consult for back brace. Plan to admit to hospitalist service for pain management. -- Spoke with Dr. Benjamin, discussed ED presentation and course, he will admit the patient. HPI General Mode of arrival: EMS . Date/Time Provider Initiated Documentation: 08/28/19 05:18 . Limitations to Documentation: no limitations . Information obtained by: patient . HPI Narrative: 29-year-old male seen here in the emergency department on 08/26/2019 for fall from roof, diagnosed with spinal fracture and questionable pneumothorax, admitted to surgical service, had negative follow-up chest x-ray and was discharged to follow-up with orthopedics, returns with persistent low back pain. Patient notes pain had improved while he was hospitalized and receiving IV analgesia, pain now uncontrolled with Tylenol and oxycodone 10 mg. Pain localized to low back. Patient denies bowel or bladder dysfunction. No numbness or weakness. Related Data Home Medications Medication Instructions Recorded Confirmed ibuprofen [IBU] 800 mg PO TID #30 tab 08/27/19 09/11/19 lorazepam 1 mg PO BID PRN #10 tab 08/27/19 09/11/19 oxycodone 5 - 10 mg PO Q4H PRN PRN #30 tab 08/27/19 09/11/19 acetaminophen [Tylenol] 650 mg PO Q4H PRN PRN #0 tab 08/29/19 09/11/19 polyethylene glycol 3350 17 g PO DAILY PRN PRN #0 ea 08/29/19 09/11/19 Previous Rx's Medication Instructions Recorded ibuprofen [IBU] 800 mg PO TID #30 tab 08/27/19 lorazepam 1 mg PO BID PRN #10 tab 08/27/19 oxycodone 5 - 10 mg PO Q4H PRN PRN #30 tab 08/27/19 acetaminophen [Tylenol] 650 mg PO Q4H PRN PRN #0 tab 08/29/19 polyethylene glycol 3350 17 g PO DAILY PRN PRN #0 ea 08/29/19 Allergies Allergy/AdvReac Type Severity Reaction Status Date / Time Sulfa (Sulfonamide Allergy Unknown Unverified 09/11/19 08:02 Antibiotics) gabapentin AdvReac Mild passes out Unverified 09/11/19 08:02 General Stated Complaint: Nk/Back Pain DOTTIE: 3 Review of Systems Cardiovascular Cardiovascular: Denies chest pain and Denies dyspnea Respiratory Respiratory: Denies dyspnea Musculoskeletal Musculoskeletal: Reports as per HPI Neurologic Neurologic: Reports as per HPI [facility] Social History Smoking/Tobacco Use Status: Current every day Tobacco Type: cigarettes Alcohol Intake: never Drug use: Occasionally Substance use type: former substance user Do you feel safe at home: Yes Do you feel safe in your relationship?: Yes Exam Const General: cooperative HENMT Head: normocephalic and atraumatic Mouth: moist mucous membranes Resp Auscultation: clear to auscultation bilaterally, no rales, no rhonchi and no wheezes Cardio Jugular venous pressure: no JVD Rate: regular rate and not tachycardic Rhythm: regular rhythm GI Palpation: soft, not firm, no guarding, no masses, not rigid and nontender Neuro General: alert, awake, oriented x3 and tone normal Cognition: normal cognition Speech: speech normal Motor: other (5/5 strength bilateral distal LEs) Sensory Exam: no sensory deficits noted (bilateral LEs) and other (no saddle anesth) Extrem General: no edema Psych Appearance: grossly normal Course Vital Signs Vital signs: Vital Signs Temperature 36.5 C 08/28/19 05:18 Pulse 72 08/28/19 05:18 Respiratory Rate 08/28/19 05:18 Blood Pressure 133/79 08/28/19 05:18 Pulse Oximetry 97 08/28/19 05:18 Temperature 36.5 C 08/28/19 05:18 Pulse 72 08/28/19 05:18 Respiratory Rate 08/28/19 05:18 Respiratory Effort Non-Labored 08/28/19 05:24 Blood Pressure 133/79 08/28/19 05:18 Blood Pressure Position Sitting 08/28/19 05:18 Pulse Oximetry 97 08/28/19 05:18 Pain Level 10 08/28/19 05:24
[2019-08-28] MEDS: HYDROmorphone 2 MG/ML VIAL 1 MG IVP ×4 (05:35→22:08)
[2019-08-28] MEDS: Ketorolac 30 MG/ML VIAL IVP ×3 (05:35→20:29)
[2019-08-28] MEDS: Lidocaine 5% Patch 1 PATCH TP (05:37)
--- NOTE | 2019-08-28 06:18 | W.PM.HP.N ---
Date of service: 08/28/19 Time of Service: 06:19 Assessment and Plan Assessment and plan (1) Fracture of body of vertebra: Start date: 08/26/19 Status: Acute Assessment and plan: This is a 29-year-old gentleman who fell off a roof 2 days ago fracturing multiple vertebrae in his thoracic and lumbar spine. They are stable and not neurologically compromising. He will be admitted for pain control being off Suboxone and orthopedic referral will be placed to help with applying more permanent brace for support. He is a full code and this will be respected. He was previously on Suboxone which may make pain control difficult but he appears comfortable presently with IV Toradol and Dilaudid being given and when not moving. (2) Opiate addiction: Status: Chronic Assessment and plan: Patient will not be on Suboxone while on oral or IV narcotics. Once his pain is better controlled and he is weaned off narcotics he will be returning to the clinic for Suboxone treatment. He appears to have good insight. Qualifiers: Substance use status: in remission Qualified Code(s): F11.21 - Opioid dependence, in remission History of Present Illness History of Present Illness Chief Complaint: Intractable back pain status post fall off roof Narrative: This is a 29-year-old gentleman who was seen in the ED 08/26/2019 after falling off a roof at work while trying to come down on a ladder after he has unhinged his safety belt. He was working at [employer] on a [employer] with a tendon roof. He fell onto his back and right side injuring his back with multiple fractures which were stable. There is a question of a pneumothorax which was negative with follow-up imaging and he was observed under surgical services and released with pain medications and a Velcro back brace. He returned to the ED with increasing pain not controlled with his medical therapy. He previously was on Suboxone and was taken off this while on his acute narcotics. He injured only his back not striking his head and his abdominal pain was referred from his back. He denied any loss of consciousness and remembers the entire event. He did fall onto ice. With his return to the ED he was admitted for intractable pain not controlled as an outpatient and for review for more permanent brace by orthopedics. Review of Systems Narrative: 13 point review of systems otherwise unrevealing or stable. The patient has no focal neurological complaints or incontinence. [facility] Medical History (Updated 08/28/19 @ 19:03 by Hipolito Benjamin) Fracture of body of vertebra (Acute) T9/10, L2/3 Opiate addiction (Chronic) Social History Smoking/Tobacco Use Status: Current every day Alcohol Intake: never Drug use: Occasionally Substance use type: former substance user Do you feel safe at home: Yes Do you feel safe in your relationship?: Yes Meds Home Medications and Allergies Home Medications Medication Instructions Recorded Confirmed Type ibuprofen [IBU] 800 mg PO TID #30 tab 08/27/19 08/28/19 Rx lorazepam 1 mg PO BID PRN #10 tab 08/27/19 08/28/19 Rx oxycodone 5 - 10 mg PO Q4H PRN PRN #30 tab 08/27/19 08/28/19 Rx Allergies Allergy/AdvReac Type Severity Reaction Status Date / Time Sulfa (Sulfonamide Allergy Unknown Unverified 08/28/19 05:22 Antibiotics) gabapentin AdvReac Mild passes out Unverified 08/28/19 05:22 Exam Narrative Exam Narrative: General: Patient is mesomorphic, in no distress at rest lying in bed and alert and oriented x3. HEENT: Normocephalic with eyes revealing pupils equal and reactive to light symmetrically, extraocular movement intact and sclera anicteric. Oropharynx with moist mucosa and poor dentition with discoloration. Ears normal without drainage. Neck: Supple with no JVD. Lungs: Clear to auscultation percussion. Chest: Nontender to palpation of the chest wall. Heart: Regular in rhythm without murmurs gallops appreciated. Abdomen: Soft, nontender and no palpable hepatosplenomegaly. No palpable masses, no guarding or rebound. Genitalia/rectal: Exam deferred. Extremities: Without clubbing cyanosis edema with all joints having full range of motion. Patient is very muscular. Peripheral pulses are intact. Neuro: No focalizing motor deficits, cranial 2 through 12 grossly intact. Sensory grossly intact. No Babinski's. Back: Decreased range of motion with patient in brace with tenderness over the thoracic and lumbar spine. The brace was not removed for examination. Psychiatric: Patient has normal memory, normal mood with normal affect and good eye contact. Results Imaging Imaging Studies: Exam(s) PROCEDURE INFORMATION: Exam: XR Chest, 2 Views Exam date and time: 08/27/2019 9:03 AM Age: 29 years old Clinical indication: Other: Right pneumothorax; Additional info: Right pneumothorax f/u on images done yesterday TECHNIQUE: Imaging protocol: XR of the chest Views: 2 views. COMPARISON: CT CHEST/ABD/PEL W 08/26/2019 4:23:53 PM CR CHEST 2 VIEWS PA,LAT 02/16/2018 8:39 AM FINDINGS: Lungs: Bibasilar/posterior lower lobe opacities with blunting of the costophrenic angles may represent parenchymal changes previously seen on recent CT. Cannot entirely exclude small pleural effusions. No pneumothorax. Pleural space: See Lungs Finding. Heart/Mediastinum: Unremarkable. No cardiomegaly. Bones/joints: Compression deformities of T9 and T10 vertebral bodies previously seen on recent CT. IMPRESSION: 1. Bibasilar/posterior lower lobe opacities with blunting of the costophrenic angles may represent parenchymal changes previously seen on recent CT. Cannot entirely exclude small pleural effusions. No pneumothorax. 2. Compression deformities of T9 and T10 vertebral bodies previously seen on recent CT. Dictated and Authenticated by: Migel Gallegos MD. Exam(s) Addendum created by Felix Harmon MD on 08/26/2019 5:49:09 PM EST On the sagittal images, acute nondisplaced fracture of L3. Only mild loss of height of T9. No encroachment on the thoracic or lumbar spinal canal. Examination results of the patient were discussed with Mey Amaral on 08/26/2019 at 5:48 PM EST ESCROW MANAGER. Initial report created on 08/26/2019 4:51:14 PM EST PROCEDURE INFORMATION: Exam: CT Chest With Contrast Exam date and time: 08/26/2019 4:21 PM Age: 29 years old Clinical indication: Low back pain, Fall from 40+ feet TECHNIQUE: Imaging protocol: Computed tomography of the chest with intravenous contrast. COMPARISON: CT Private^TRAUMA CAP (Adult) 05/03/2018 11:50 AM FINDINGS: Lungs: Posterior lung dependent parenchymal changes bilaterally. Peripheral right lung bulla, unchanged from 05/03/2018. Pleural space: No pleural fluid collection. Possible trace right pneumothorax Heart: Unremarkable. No cardiomegaly. No pericardial effusion. Aorta: Unremarkable. No aortic aneurysm. Lymph nodes: Unremarkable. No enlarged lymph nodes. Bones/joints: Acute fracture of the T9 and T10 vertebral bodies. Acute fracture of the L2 vertebral body. Acute fracture of the left transverse process of L1 and L2. Soft tissues: Soft tissue edema anterior to the T9 / 10 levels. IMPRESSION: 1. Acute fracture of the T9 and T10 vertebral bodies. 2. Acute fracture of the L2 vertebral body. 3. Acute fracture of the left transverse process of L1 and L2. 4. Peripheral right lung bulla, unchanged from 05/03/2018. Possible trace right pneumothorax. 5. No pleural fluid collection. PROCEDURE INFORMATION: Exam: CT Abdomen And Pelvis With Contrast Exam date and time: 08/26/2019 4:21 PM Age: 29 years old Clinical indication: Low back pain, Fall from 40+ feet TECHNIQUE: Imaging protocol: Computed tomography of the abdomen and pelvis with intravenous contrast. COMPARISON: CT Private^TRAUMA CAP (Adult) 05/03/2018 11:50 AM FINDINGS: Liver: Normal. No mass. Gallbladder and bile ducts: Normal. No calcified stones. No ductal dilation. Pancreas: Normal. No ductal dilation. Spleen: Normal. No splenomegaly. Adrenals: Normal. No mass. Kidneys and ureters: Normal. No hydronephrosis. Stomach and bowel: Unremarkable. No obstruction. No mucosal thickening. Appendix: No evidence of appendicitis. Intraperitoneal space: Unremarkable. No free air. No significant fluid collection. Vasculature: Unremarkable. No abdominal aortic aneurysm. Lymph nodes: Unremarkable. No enlarged lymph nodes. Bladder: Unremarkable as visualized. Reproductive: Unremarkable as visualized. Bones/joints: Acute fracture of the T9 and T10 vertebral bodies. Acute fracture of the L2 vertebral body. Acute fracture of the left transverse process of L1 and L2. Prominent Schmorl's node of the inferior endplate of L4. Soft tissues: Unremarkable. IMPRESSION: 1. Acute fracture of the T9 and T10 vertebral bodies. 2. Acute fracture of the L2 vertebral body. 3. Acute fracture of the left transverse process of L1 and L2. 4. No acute intra-abdominal or pelvic findings. Dictated and Authenticated by: Felix Harmon MD. Labs Result diagrams: 08/28/19 06:48 08/28/19 06:48 Last Vital Signs Temp 36.5 C 08/28/19 05:18 Pulse 72 08/28/19 05:18 Resp 20 08/28/19 05:18 BP 133/79 08/28/19 05:18 Pulse Ox 97 08/28/19 05:18
[2019-08-28 06:53] LABS: Abs Immature Grans 0.01 k/cumm (0.0-0.09); Absolute Basophil Count 0.01 k/cumm (0.0-0.2); Absolute Eosinophil Count 0.03 k/cumm (0.0-0.7); Absolute Lymphocyte Count 0.84 k/cumm (1.2-3.4); Absolute Monocyte Count 0.45 k/cumm (0.11-0.7); Absolute Neutrophil Count 7.38 k/cumm (1.2-6.7); Basophils % 0.1; Eosinophils % 0.3; HCT 38.1 % (40.0-50.0); HGB 13.2 g/dL (13.5-17.5); Immature Grans % 0.1 %; Lymphocytes % 9.6; Mean Corp. HGB Concentration 34.6 g/dL (32.0-36.0); Mean Corpuscular Hemoglobin 31.9 pg (27.0-33.0); Mean Platelet Volume 9.1 fL (8.0-11.0); Monocytes % 5.2; Neutrophils % 84.7; Platelet Count 281 x1000/uL (130-400); RBC 4.14 m/cumm (4.50-6.00); RBC Distribution Width 12.3 % (11.8-14.1); White Blood Cell Count 8.72 k/cumm (4.4-10.8)
[2019-08-28 07:12] LABS: ALT 25 U/L (16-63); AST 28 U/L (15-37); Albumin 3.8 g/dL (3.4-5.0); Alkaline Phosphatase 80 U/L (46-116); Anion Gap 8.3 mmol/L (3-11); BUN 6 mg/dL (7-18); Bilirubin, Total 1.8 mg/dL (0.2-1.0); CO2 27.7 mmol/L (21.0-32.0); CREATININE 0.74 mg/dL (0.70-1.30); Calcium 8.7 mg/dL (8.5-10.1); Chloride 103 mmol/L (98-107); Glucose 122 mg/dL (74-106); Potassium 3.9 mmol/L (3.5-5.1); Sodium 139 mmol/L (136-145); Total Protein 6.6 g/dL (6.4-8.2)
[2019-08-28 07:27] LABS: Prothrombin Time 10.5 sec (9.3-11.0)
[2019-08-28] MEDS: Nicotine 21 MG/24 HR PATCH TD (08:20)
[2019-08-28] MEDS: Acetaminophen 325 MG TAB PO ×2 (08:20→15:21)
--- NOTE | 2019-08-28 09:19 | INITIAL_ITS ---
- If Service Date Differs Date of service: 08/28/19 Time of Service: 09:19 Care Management Initial Assess REASON FOR HOSPITALIZATION:: Fall with fracture T9,T10, L1 and L2 readmission for pain control awaiting for a back brace PAST MEDICAL HISTORY/PAST SURGICAL HISTORY:: Past medical history benign PREVIOUS FUNCTIONAL STATUS/SOCIAL/FAMILY SUPPORTS:: Nikita lives in a transition house in [facility] with 4 other people.He works for [employer] which is where his injury occurred. Nikita has 2 brothers and 2 sisters. His father is his main support . His mother of skin cancer. Nikita is independent with all care and activities. ADVANCE DIRECTIVES:: None on file?CM offered to assist with completion and forms. Has patient been provided with information about the portal?: Yes Did the patient sign up for the portal?: No CODE STATUS:: Full Code INSURANCE COVERAGE / FINANCIAL ISSUES:: Medicaid is current but not the active payer for this stay related injury at work. VISIT IS A WORKMANS COMP VISIT, INSURANCE REMOVED AND WC FORM PROVIDED TO EMPLOYER OF [employer] CURRENT HOME/COMMUNITY SERVICES/EQUIPMENT:: Transitional housing ([employer] [employer]) House locally and has supports through [place], and Probation and [place] PRIMARY CARE PHYSICIAN:: [facility] POTENTIAL DISCHARGE NEEDS:: Follow up with primary care, orthopedics PATIENT/FAMILY EDUCATION NEEDS:: Discharge education, limitations, follow-up plan of care, as me 3 and self-management ANTICIPATED BARRIERS TO DISCHARGE:: Awaiting a TLSO brace but should be here on 08/29/2019 TRANSPORTATION:: Via private car with transitional housing provider. PLAN:: Nikita was readmitted for pain related to multiple spine fractures. He will have a PT and OT consult today, TLSO brace should arrive on Wednesday. He will be discharged when medically ready. He will need a note from provider stating level of activity that he can participate in. CM to continue to provide support and ongoing discharge planning and disposition. Readmission - Within the Past 30 Days Yes or No: Y - Date of First Admission Date of 1st Admission: 08/26/19 - Date of this Admission Date of Admission: 08/28/19 This admission was: Through ED - Office Visit Since 1st Admission Have you seen your PCP in the office since discharge?: No Had an appointment Been Scheduled?: No - Assessment for Readmission Summary of readmission circumstances, based upon interviews: Patient states that he believes he was readmitted due to pain and inability to take care of himself at home. He states all the pharmacies were closed at time of discharge and he was not able to obtain his pain medication. He also feels that he was discharged too soon, he reports his pain was not well controlled prior to being discharged home. It was recommended that patient have a TLSO brace that would not be available until mid week, and was not available prior to discharge.
[2019-08-28] MEDS: Normal Saline Flush 10 ML SYR IVP ×5 (09:51→22:09)
[2019-08-28] MEDS: Docusate Sodium 100 MG CAP PO (13:54)
[2019-08-28] MEDS: Polyethylene Glycol 3350 17 GM PACKET PO (15:28)
--- NOTE | 2019-08-28 16:15 | PHARADMIT ---
Admission Pharmacy Clinical Review vertebral fractures w/uncontrolled pain, opioid ad Code Status Full Code Current Weight 78.9 kg Renally Cleared and Narrow Therapeutic Index Meds Crcl ~143 mL/min current meds okay QTc Value / Action Taken QTc 429 BP Control, Fever BP 150/88 Tmax 37.7 Electrolytes reviewed within normal limits DVT Prophylaxis none Opiate Usage / Scheduled Bowel Regimen Ordered prn/prn Plt/SCr for Heparin / Enoxaparin plt 281 SCr 0.74 INR for Warfarin n/a H/H stable, WBC/Bands h/h 13.2/38.1 wbc 8.72 Antibiotic appropriateness none Cultures and Sensitivities none Surgical ABX d/c within 24 hr n/a DM control / Insulin Dosing BG 122 none Heart Failure (Check EF%) (KARLA's, B-Block, Diuretics) none IV to PO Switch n/a Home Meds Reviewed multiple 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
--- NOTE | 2019-08-28 16:29 | IN_ITS ---
Date of service: 08/28/19 Time of Service: 15:45 PT Notes Visit Reasons: vertebral fractures w uncontrolled pain, opioid ad Physical Therapy Inpatient Initial Evaluation Date: 08/28/2019 Referring Doctor: Festus Greer M.D. PT Orders: PT CONSULT: Safety consult for D/C Precautions: Fall. Standard. Activity as tolerated. Spinal precautions. Patient Profile/Admitting Diagnosis: Pt is a 29-year-old male presented to the ER on 08/26/2019 following a fall of off a 2 ? story building at work onto packed ice. He was diagnosed with a small right pneumothorax, fracture of vertebral bodies T9-10, L2 vertebral body fracture, and left transverse process fractures of L1-2. He was discharged to home and returned to the ER on 08/28/2019 for increased neck and back pain. 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 Notes that he has about 20 stairs to get to the second floor. Equipment Owned/DME: None Subjective: Pt states that he slipped on ice on a ladder when coming down off of a roof at work. He reports that he was able to walk into the ER on 08/26/2019 and was discharged home. States that going up the stairs did not increase his pain too much as he used his arms to pull on the railings. When lying flat in bed he reports that his pain increased and he went back down the stairs to lie in a recliner. Today he had a family member bring him back to the ER because of his pain and was able to walk into the ER. Notes he will receive a TLSO brace in the middle of this week. Objective: General Observation: abdominal binder. Mental Status: alert and oriented Pain: 7/10 ROM: Right Upper Extremity: Shoulder Flexion WFL. Shoulder abduction WFL. Elbow flexion WFL. Wrist flexion WFL. Opening and closing of hand WFL. Left Upper Extremity: Shoulder Flexion WFL. Shoulder abduction WFL. Elbow flexion WFL. Wrist flexion WFL. Opening and closing of hand WFL. Right Lower Extremity: Hip flexion WFL. Hip abduction WFL. Knee flexion WFL. Ankle dorsiflexion WFL. Ankle plantarflexion WFL. Left Lower Extremity: Hip flexion WFL. Hip abduction WFL. Knee flexion WFL. Ankle dorsiflexion WFL. Ankle plantarflexion WFL. Strength: Right Upper Extremity: Shoulder flexors 5/5. Shoulder abductors 5/5. Elbow flexors 5/5. Elbow extensors 5/5. Therapeutic Sales Specialist strong. Left Upper Extremity: Shoulder flexors 5/5. Shoulder abductors 5/5. Elbow flex ors 5/5. Elbow extensors 5/5. Therapeutic Sales Specialist strong. Right Lower Extremity: Hip flexors 5/5 (pain). Hip abductors 5/5. Knee flexors 5/5. Knee extensors 5/5. Ankle dorsiflexors 5/5. Ankle plantarflexors 5/5. Left Lower Extremity: Hip flexors 5/5 (pain). Hip abductors 5/5. Knee flexors 5/5. Knee extensors 5/5. Ankle dorsiflexors 5/5. Ankle plantarflexors 5/5. Sensation: Intact as to pain and pressure on bilateral upper and lower extremities. Bed Mobility/Transfers: Rolling SBA Supine to sit SBA Sit to supine SBA Sit to stand supervision Stand to sit supervision Bed to chair supervision Chair to bed supervision Gait: Pt was able to ambulate 120 feet without the use of an assistive device. Supervision provided by PT and PT student. Decreased trunk rotation and limited arm swing due to pain. Balance: Static Sitting: Normal Dynamic Sitting: Normal Static Standing: Normal Dynamic Standing: Good Special Tests: Mobility Limitations Standardized Measure [facility] AM-PAC 6 clicks Basic Mobility Inpatient Short Form: Raw Score: 24 CMS Score: 0% deficit Informed Consent/Education: Patient instructed in purpose of PT consult and plan of care. Assessment: Pt is a 29-year-old male presented to the ER on 08/26/2019 following a fall of off a 2 ? story building at work onto packed ice. He was diagnosed with a small right pneumothorax, fracture of vertebral bodies T9-10, L2 vertebral body fracture, and left transverse process fractures of L1-2. He was discharged to home and returned to the ER on 08/28/2019 for increased neck and back pain. Pt presents to physical therapy with impairment level findings as listed below. He would continue to benefit from skilled physical therapy once he has obtained his TLSO brace for trunk support. Patient presents with clinical signs and symptoms consistent with current/admitting diagnoses that have resulted to mobility limitations and gait instability as demonstrated by the following impairment level findings: 1. Impaired gait 2. Impaired activity tolerance 3. Limitation of joint range of motion on spine 4. Impaired skeletal integrity Impairments are contributing to the following functional limitations: 1. Dependent bed mobility skills 2. Increased dependence with transfers 3. Increase completion time for mobility ADL performance 4. Increased fall risk Patient is assessed as a 73014 complexity based on the following: History: Pt is a 29-year-old male presented to the ER on 08/26/2019 following a fall of off a 2 ? story building at work onto packed ice. He was diagnosed with a small right pneumothorax, fracture of vertebral bodies T9-10, L2 vertebral body fracture, and left transverse process fractures of L1-2. He was discharged to home and returned to the ER on 08/28/2019 for increased neck and back pain. Examination: Demonstrable impairment in strength, balance, and range of motion with underlying impairments and functional limitations as documented above Presentation: Evolving Decision Makin moderate complexity Goals: Goals X1 week 1. Supine-Sit independent 2. Sit-Supine independent 3. Sit-Stand independent 4. Stand-Sit independent 5. Bed-Chair independent 6. Chair-Bed independent 7. Independent gait on level surface with use of least restrictive device for at least 300 feet without report of pain nor dyspnea 8. Independent stair negotiation while holding onto bilateral rails for at least 20 steps without report of pain nor dyspnea 9. Independent with home exercise program 10. Verbalize spinal precautions Plan of Care/Treatment Plan: 3x/week x 1 week. Plan of care has been reviewed with the WET SILK HANGER providing the service under Physical Therapy direction. Initiate Physical Therapy intervention for strengthening, bed mobility, transfers, gait, stairs, balance training, use of assistive device. DISCHARGE RECOMMENDATIONS: Will await arrival of TLSO brace before PT will proceed with functional mobility training. Pt is to be discharged home when medically cleared. He would benefit from outpatient physical therapy for continued reductions in pain and improved mobility of the spine. TREATMENT CODE/TIME: 12708 x 19 minutes beginning at 15:45 P.M. Thank you very much for this referral. Prashant Rausch, SPT Doctor of Physical Therapy Student [facility] Supervision provided by Joanna Curry PT, DPT, CLT [facility] [place], [place]
[2019-08-28] MEDS: Milk of Magnesia 30 ML CUP PO (16:39)
[2019-08-29 04:02] VITALS: BP 112/69; PULSE 67; RESP 16; TEMP 37.8; O2SAT 95
[2019-08-29] MEDS: HYDROmorphone 2 MG/ML VIAL 1 MG IVP ×2 (06:24→10:55)
[2019-08-29] MEDS: Normal Saline Flush 10 ML SYR IVP ×3 (06:28→10:56)
[2019-08-29 06:30] LABS: HCT 39.2 % (40.0-50.0); HGB 13.2 g/dL (13.5-17.5); Mean Corp. HGB Concentration 33.7 g/dL (32.0-36.0); Mean Corpuscular Hemoglobin 30.9 pg (27.0-33.0); Mean Corpuscular Volume 91.8 fL (80-95); Mean Platelet Volume 9.2 fL (8.0-11.0); Platelet Count 303 x1000/uL (130-400); RBC 4.27 m/cumm (4.50-6.00); RBC Distribution Width 12.3 % (11.8-14.1); White Blood Cell Count 7.41 k/cumm (4.4-10.8)
[2019-08-29 06:50] LABS: ALT 21 U/L (16-63); AST 17 U/L (15-37); Albumin 3.5 g/dL (3.4-5.0); Alkaline Phosphatase 71 U/L (46-116); Anion Gap 6.3 mmol/L (3-11); BUN 16 mg/dL (7-18); Bilirubin, Total 1.7 mg/dL (0.2-1.0); CO2 27.7 mmol/L (21.0-32.0); CREATININE 0.76 mg/dL (0.70-1.30); Calcium 8.3 mg/dL (8.5-10.1); Chloride 104 mmol/L (98-107); Glucose 99 mg/dL (74-106); Potassium 3.6 mmol/L (3.5-5.1); Sodium 138 mmol/L (136-145); Total Protein 6.4 g/dL (6.4-8.2)
[2019-08-29 07:30] VITALS: BP 131/71; PULSE 72; RESP 14; TEMP 36.8; O2SAT 95
[2019-08-29] MEDS: Nicotine 21 MG/24 HR PATCH TD (07:54)
[2019-08-29] MEDS: Acetaminophen 325 MG TAB PO (07:55)
[2019-08-29] MEDS: Docusate Sodium 100 MG CAP PO (07:56)
[2019-08-29] MEDS: Ketorolac 30 MG/ML VIAL IVP (08:37)
--- NOTE | 2019-08-29 11:28 | W.PM.DS.N ---
Documented by User: Dara Mendez NP 08/30/19 17:15 Date of service: 08/29/19 Time of Service: 11:00 DS: Diagnosis Discharge Diagnosis (1) Fracture of body of vertebra: Status: Acute (2) Opiate addiction: Status: Chronic (3) Constipation: Status: Acute Discharge Plan Disposition Patient Disposition: HOME Condition: Serious Discharge Details Chief Complaint: Nk/Back Pain Clinical Impression: Spinal fracture, Back pain due to injury Reason For Visit: vertebral fractures w uncontrolled pain, opioid ad Admit Date/Time: 08/28/19 06:14 Admit Provider: Hipolito Benjamin Attending Provider: Nikita Farley Primary Care Provider: Dayanara Chavez V ED Provider: Wojciech Wilcox Hospital Course Hospital Course: This is a 29 year old patient who fell off a roof, falling 2-1/2 stories, and landed on a packed snow/ice surface. He immediately complained of back pain. He did not have any loss of consciousness or any other obvious injuries. Evaluation in the emergency department with a CT scan of the head, neck, chest abdomen and pelvis, thoracic and lumbar spine revealed injuries of the vertebral bodies of T9/T10 as well as L2/L3. There is no encroachment of the spinal column and the patient does not have any neurologic complaints. He also had fractures of the L1/L2 transverse processes. He was referred to observation under surgery and was placed on oral narcotics. He was discharged to home when deemed stable but was unable to fill his prescription as pharmacies where closed. He returned to the ED to roller picker some oral tablets to get him through the night but pain not managed so he was referred again to observation, this time under hospitalist services for pain management. Orthopedics was consulted and he was fitted for a TLSO brace. He was seen by physical therapy and has been reambulated without difficulty. He is having no shortness of breath, no abdominal pain. He is tolerating a diet without nausea or vomiting. He reports no extremity weakness or tingling. He had some constipation which was relieved with bowel management. His brace has arrived and he was instructed by PT. he is to be discharged to home with no new services. he should continue pain regimen as previously directed. he was given prescriptions at discharge previously so no new prescriptions given. he is to follow up with orthopedics in 3-4 weeks and with pcp sooner. Home Meds and New Rx's Prescriptions: New acetaminophen [Tylenol] 325 mg Tablet 650 mg PO Q4H PRN PRN (Reason: pain) Qty: 0 RF: 0 polyethylene glycol 3350 17 gram Powder In Packet 17 g PO DAILY PRN PRN (Reason: Constipation) Qty: 0 RF: 0 Continued ibuprofen [IBU] 800 mg Tablet 800 mg PO TID Qty: 30 RF: 0 lorazepam 1 mg Tablet 1 mg PO BID PRN (Reason: muscle spasm) Qty: 10 RF: 0 oxycodone 5 mg Tablet 5 - 10 mg PO Q4H PRN PRNQty: 30 RF: 0 Discharge Instructions Instructions: Thoracolumbar Fracture (DC), Clamshell Brace (DC) Stand Alone Forms: Nursing Discharge Form Referrals: Dayanara Chvaez MD [Primary Care Provider] - 09/05/19 8:15 am Misha Davis MD [ [facility] STAFF PHYSICIAN] - 09/25/19 2:30 pm Activity:: Activity as Tolerated Equipment/Supplies:: BRACE Diet:: As Tolerated Discharge Orders Discharge Orders: Discharge Order (Routine); Ordered 08/29/19 Ordered By: Dara Mendez Discharge Data Discharge Date/Time-TO BE ENTERED AT DEPARTURE: 08/29/19 16:06 DS: Summary Status at Discharge Functional status at discharge: independent ambulation Overall status at discharge: patient is progressing back to baseline Mental Status: mental status grossly normal Speech and Movement: speech and movement normal Mood: congruent mood Affect: normal affect Exam Const General: cooperative, healthy appearing, comfortable and no acute distress Nutritional Appearance: average body habitus Orientation: alert, awake and oriented x3 HENMT Head: normal to inspection, normocephalic and atraumatic Mouth: oral mucosae normal Resp Effort & Inspection: normal respiratory effort and able to speak in complete sentences Auscultation: clear to auscultation bilaterally Cardio Rate: regular rate Rhythm: regular rhythm GI Inspection: normal to inspection Palpation: soft Psych Mental Status: mental status grossly normal Speech and Movement: speech and movement normal Mood: congruent mood Affect: normal affect DS: Data Vitals/I&O Vitals and I&O: Vital Signs Temperature 36.8 C 08/29/19 07:30 Temperature Source Tympanic 08/29/19 07:30 Pulse 72 08/29/19 07:30 Pulse Rhythm Regular 08/29/19 04:05 Respiratory Rate 14 08/29/19 07:30 Respiratory Effort Non-Labored 08/29/19 10:22 Respiratory Depth Normal 08/29/19 10:22 Respiratory Pattern Normal 08/29/19 10:22 Blood Pressure 131/71 08/29/19 07:30 Blood Pressure Position Sitting 08/28/19 05:18 Pulse Oximetry 95 08/29/19 07:30 Oxygen Delivery Method Room Air 08/29/19 07:30 Oxygen Flow Rate 0 08/29/19 07:30 Pain Level 7 08/29/19 10:55 Intake & Output 08/28/19 08/28/19 08/29/19 11:59 23:59 11:59 Intake Total 320 / 320 Output Total 100 / 100 Balance 220 / 220 Weight 78.9 kg 80 kg Intake: IV Oral 300 / 300 Output: Urine 100 / 100 Other: Urine Color Yellow Light Ayah Yellow Urine Appearance Clear Clear Clear Urine Odor None None Comment voids independently. Stool Size Moderate Stool Characteristics Formed Voiding Methods Toilet Urinal Urinal Data Completed and Pending Labs on day of discharge: Labs from last 24 hours 08/29/19 08/29/19 06:15 06:15 WBC 7.41 RBC 4.27 L Hgb 13.2 L Hct 39.2 L MCV 91.8 MCH 30.9 MCHC 33.7 RDW 12.3 Plt Count 303 MPV 9.2 Sodium 138 Potassium 3.6 Chloride 104 Carbon Dioxide 27.7 Anion Gap 6.3 BUN 16 D Creatinine 0.76 Estimated GFR/1.73 m2 >= 60.00 Glucose 99 Calcium 8.3 L Total Bilirubin 1.7 H AST 17 ALT 21 Alkaline Phosphatase 71 Total Protein 6.4 Albumin 3.5 PFSH Social History Smoking/Tobacco Use Status: Current every day Tobacco Type: cigarettes Alcohol Intake: never Drug use: Occasionally Substance use type: former substance user Current gender identity: male Do you feel safe at home: Yes Do you feel safe in your relationship?: Yes Documented by User: Nikita Farley MD 10/16/19 08:49 Discharge Plan Disposition Patient Disposition: HOME Condition: Serious Discharge Details Chief Complaint: Nk/Back Pain Clinical Impression: Spinal fracture, Back pain due to injury Reason For Visit: vertebral fractures w uncontrolled pain, opioid ad Admit Date/Time: 08/28/19 06:14 Admit Provider: Hipolito Benjamin Attending Provider: Nikita Farley Primary Care Provider: Dayanara Chavez V ED Provider: Wojciech Wilcox Hospital Course Hospital Course: This is a 29 year old patient who fell off a roof, falling 2-1/2 stories, and landed on a packed snow/ice surface. He immediately complained of back pain. He did not have any loss of consciousness or any other obvious injuries. Evaluation in the emergency department with a CT scan of the head, neck, chest abdomen and pelvis, thoracic and lumbar spine revealed injuries of the vertebral bodies of T9/T10 as well as L2/L3. There is no encroachment of the spinal column and the patient does not have any neurologic complaints. He also had fractures of the L1/L2 transverse processes. He was referred to observation under surgery and was placed on oral narcotics. He was discharged to home when deemed stable but was unable to fill his prescription as pharmacies where closed. He returned to the ED to roller picker some oral tablets to get him through the night but pain not managed so he was referred again to observation, this time under hospitalist services for pain management. Orthopedics was consulted and he was fitted for a TLSO brace. He was seen by physical therapy and has been reambulated without difficulty. He is having no shortness of breath, no abdominal pain. He is tolerating a diet without nausea or vomiting. He reports no extremity weakness or tingling. He had some constipation which was relieved with bowel management. His brace has arrived and he was instructed by PT. he is to be discharged to home with no new services. he should continue pain regimen as previously directed. he was given prescriptions at discharge previously so no new prescriptions given. he is to follow up with orthopedics in 3-4 weeks and with pcp sooner. Home Meds and New Rx's Prescriptions: New acetaminophen [Tylenol] 325 mg Tablet 650 mg PO Q4H PRN PRN (Reason: pain) Qty: 0 RF: 0 polyethylene glycol 3350 17 gram Powder In Packet 17 g PO DAILY PRN PRN (Reason: Constipation) Qty: 0 RF: 0 Continued ibuprofen [IBU] 800 mg Tablet 800 mg PO TID Qty: 30 RF: 0 lorazepam 1 mg Tablet 1 mg PO BID PRN (Reason: muscle spasm) Qty: 10 RF: 0 oxycodone 5 mg Tablet 5 - 10 mg PO Q4H PRN PRNQty: 30 RF: 0 Discharge Instructions Instructions: Thoracolumbar Fracture (DC), Clamshell Brace (DC) Stand Alone Forms: Nursing Discharge Form Referrals: Dayanara Chavez MD [Primary Care Provider] - 09/05/19 8:15 am Misha Davis MD [ [facility] STAFF PHYSICIAN] - 09/25/19 2:30 pm Activity:: Activity as Tolerated Equipment/Supplies:: BRACE Diet:: As Tolerated Discharge Orders Discharge Orders: Discharge Order (Routine); Ordered 08/29/19 Ordered By: Dara Mendez Discharge Data Discharge Date/Time-TO BE ENTERED AT DEPARTURE: 08/29/19 16:06 [facility] Social History Smoking/Tobacco Use Status: Current every day Tobacco Type: cigarettes Alcohol Intake: never Drug use: Occasionally Substance use type: former substance user Current gender identity: male Do you feel safe at home: Yes Do you feel safe in your relationship?: Yes
[2019-08-29 11:30] VITALS: BP 134/78; PULSE 67; RESP 20; TEMP 36.9; O2SAT 95
--- NOTE | 2019-08-29 11:58 | INDS_ITS ---
Date of service: 08/29/19 Time of Service: 10:50 PT Notes Visit Reasons: vertebral fractures w uncontrolled pain, opioid ad Physical therapy inpatient discharge summary Date: 08/29/2019 Dates of Service: 08/28/2019 and 08/29/2019 Referring Doctor: Festus Greer M.D. PT Orders: PT CONSULT: Safety consult for D/C Precautions: Fall. Standard. Activity as tolerated. Spinal precautions. Patient Profile/Admitting Diagnosis: Pt is a 29-year-old male presented to the ER on 08/26/2019 following a fall of off a 2 ? story building at work onto packed ice. He was diagnosed with a small right pneumothorax, fracture of vertebral bodies T9-10, L2 vertebral body fracture, and left transverse process fractures of L1-2. He was discharged to home and returned to the ER on 08/28/2019 for increased neck and back pain. 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 Notes that he has about 20 stairs to get to the second floor. Equipment Owned/DME: None Subjective: Pt states that he slipped on ice on a ladder when coming down off of a roof at work. He reports that he was able to walk into the ER on 08/26/2019 and was discharged home. States that going up the stairs did not increase his pain too much as he used his arms to pull on the railings. When lying flat in bed he reports that his pain increased and he went back down the stairs to lie in a recliner. Today he had a family member bring him back to the ER because of his pain and was able to walk into the ER. Notes he will receive a TLSO brace in the middle of this week. Objective: General Observation: abdominal binder. Mental Status: alert and oriented Pain: 5/10 after negotiating 12 steps outside the med surg area to the third floor with TLSO ROM: Right Upper Extremity: Shoulder Flexion WFL. Shoulder abduction WFL. Elbow flexion WFL. Wrist flexion WFL. Opening and closing of hand WFL. Left Upper Extremity: Shoulder Flexion WFL. Shoulder abduction WFL. Elbow flexion WFL. Wrist flexion WFL. Opening and closing of hand WFL. Right Lower Extremity: Hip flexion WFL. Hip abduction WFL. Knee flexion WFL. Ankle dorsiflexion WFL. Ankle plantarflexion WFL. Left Lower Extremity: Hip flexion WFL. Hip abduction WFL. Knee flexion WFL. Ankle dorsiflexion WFL. Ankle plantarflexion WFL. Strength: Right Upper Extremity: Shoulder flexors 5/5. Shoulder abductors 5/5. Elbow flexors 5/5. Elbow extensors 5/5. Plating Tank Operator Apprentice strong. Left Upper Extremity: Shoulder flexors 5/5. Shoulder abductors 5/5. Elbow flexors 5/5. Elbow extensors 5/5. Plating Tank Operator Apprentice strong. Right Lower Extremity: Hip flexors 5/5 (pain). Hip abductors 5/5. Knee flexors 5/5. Knee extensors 5/5. Ankle dorsiflexors 5/5. Ankle plantarflexors 5/5. Left Lower Extremity: Hip flexors 5/5 (pain). Hip abductors 5/5. Knee flexors 5/5. Knee extensors 5/5. Ankle dorsiflexors 5/5. Ankle plantarflexors 5/5. Sensation: Intact as to pain and pressure on bilateral upper and lower extremities. Bed Mobility/Transfers: Rolling independent Supine to sit independent Sit to supine independent Sit to stand independent Stand to sit independent Bed to chair independent Chair to bed independent Gait: Pt was able to ambulate 100 feet x 2 with TLSO without the use of an as sistive device. Supervision provided by PT and PT student. Armswing improved. Patient also managed to negotiate up and down 12 steps x2 with TLSO brace with one hand holding onto left rail with just supervision of ORACLE ERP ARCHITECT and student PT. Patient reports improved stability in spine during activity. Reported 5/10 pain after activity Balance: Static Sitting: Normal Dynamic Sitting: Normal Static Standing: Normal Dynamic Standing: Good Assessment: Pt is a 29-year-old male presented to the ER on 08/26/2019 following a fall of off a 2 ? story building at work onto packed ice. He was diagnosed wit h a small right pneumothorax, fracture of vertebral bodies T9-10, L2 vertebral body fracture, and left transverse process fractures of L1-2. He was discharged to home and returned to the ER on 08/28/2019 for increased neck and back pain. Pt presents to physical therapy with impairment level findings as listed below. Patient also demonstrated good understanding of HEP given to him with out any report of increased pain in the spine. Written instructions with exercise illustrations provided to patient today. Patient presents with clinical signs and symptoms consistent with current/admitting diagnoses that have resulted to mobility limitations and gait instability as demonstrated by the following impairment level findings: 1. Limitation of joint range of motion on spine 2. Impaired skeletal integrity Impairments are contributing to the following functional limitations: 1. Increase completion time for mobility ADL performance 2. Increased fall risk Goals: Goals X1 week 1. Supine-Sit independent MET 2. Sit-Supine independent MET 3. Sit-Stand independent MET 4. Stand-Sit independent MET 5. Bed-Chair independent MET 6. Chair-Bed independent MET 7. Independent gait on level surface with use of least restrictive device for at least 300 feet without report of pain nor dyspnea NOT MET 8. Independent stair negotiation while holding onto bilateral rails for at least 20 steps without report of pain nor dyspnea NOT MET 9. Independent with home exercise program NOT MET 10. 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 Continue with HEP performance as initiated here. Continue with observing back precautions: No bending, twisting, heavy lifting. Use TLSO at all times when out of bed. Use site medical director provided as needed for ADL performance. Pt may be discharged home when medically cleared. TREATMENT CODE/TIME: 14994 x 40 minutes beginning at 10:50 AM. Thank you very much for this referral. Joanna Curry PT, DPT, CLT [facility] [place], [place]
--- NOTE | 2019-08-29 12:32 | CMDISCH_ITS ---
LACE Index Scoring Tool - Questions: Length of Stay (in days): 1 Acuity (Admit via E.D.?): Yes E.D. Visits: 2 - Answers: Total Score: 6 Risk of Readmission: Low Risk Care Management Discharge Reason for Hospitalization: Fall with fracture T9,T10, L1 and L2 readmission for pain control awaiting for a back brace Discharge Plan: Nikita will return home with no additional services at this time with new TLSO brace and home instructions. 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 He will continue with HEP performance as initiated at [facility]. Nikita will be on back precautions: No bending, twisting, heavy lifting. He will utilize TLSO at all times when out of bed and use personnel security assistant provided as needed for ADL performance.He will resume supports through [employer] and follow up with his PCP and plan of care as prescribed. Patient/Family Education Needs: Review discharge instructions, discuss Ask Me Three. Services Needed at Discharge: DME Agency (TLSO Brace )
== END 2019-08-29 16:06 | disposition home or self-care (01) ==
LOC: ER 06:25 → MS 10:35
PROVIDERS: Admitting Provider Family Medicine; Emergency Provider Student in an Organized Health Care Education/Training Program; PCP Family Medicine; Visit Provider Family Medicine
DX: G89.11 Acute pain due to trauma (principal); S32.028D Other fracture of second lumbar vertebra, subsequent encounter for fracture with routine healing; S32.018D Other fracture of first lumbar vertebra, subsequent encounter for fracture with routine healing; S22.070D Wedge compression fracture of T9-T10 vertebra, subsequent encounter for fracture with routine healing; K59.00 Constipation, unspecified; W13.2XXD Fall from, out of or through roof, subsequent encounter; F11.21 Opioid dependence, in remission; F17.210 Nicotine dependence, cigarettes, uncomplicated
CPT/HCPCS: 36415; 80053; 85027; 96374; 96375; 97110; 97530; 99217; 99222; 99285; L0464; 85025; 85610; 99219; 99284; G0378; J1885

== ENCOUNTER 2019-09-11 07:48 | Emergency (ER) | payer MEDICAID, OTHER, SELFPAY ==
[2019-09-11 07:59] VITALS: BP 139/79; PULSE 77; RESP 18; TEMP 36.8; O2SAT 97
--- NOTE | 2019-09-11 08:17 | W.ED.GENAD ---
Discharge Plan Disposition Patient Disposition: HOME Condition: Stable Discharge Details Chief Complaint: Chest/Rib Clinical Impression: Chest wall muscle strain Primary Care Provider: Dayanara Chavez V ED Provider: Todd Villegas Home Meds and New Rx's Prescriptions: Continued ibuprofen [IBU] 800 mg Tablet 800 mg PO TID Qty: 30 RF: 0 lorazepam 1 mg Tablet 1 mg PO BID PRN (Reason: muscle spasm) Qty: 10 RF: 0 oxycodone 5 mg Tablet 5 - 10 mg PO Q4H PRN PRNQty: 30 RF: 0 acetaminophen [Tylenol] 325 mg Tablet 650 mg PO Q4H PRN PRN (Reason: pain) Qty: 0 RF: 0 polyethylene glycol 3350 17 gram Powder In Packet 17 g PO DAILY PRN PRN (Reason: Constipation) Qty: 0 RF: 0 Discharge Instructions Instructions: Muscle Strain (ED) Additional Instructions: Remove Lidoderm patch in 12 hours. Continue your regular medications. Return if you develop abdominal pain, difficulty breathing, or any other acute concerns. Follow-up in clinic as you have planned to do. Medical Decision Making 29-year-old male presents with history of having fallen 2 stories on August 26 which was evaluated emergency department including CAT scan of the chest. He was found to have lumbar fractures that is been managed with a brace and oral analgesia, with improvement. 2 days ago he had a twisting movement out of the shower and felt a pop in his left anterior rib cage with persistent pain since that time. His vital signs and oxygenation are normal. He is tender overlying the left lower rib cage. Referred for x-ray with rib views that does not show acute fracture. Consistent with rib/cartilage strain. Lidoderm patch placed. Patient is given single additional oral analgesia and will continue his outpatient regimen. He understands indications to return. I did reexamine the abdomen including left upper quadrant with no evidence of tenderness and therefore do not feel a delayed splenic rupture is likely. I did discuss this with him. He is stable and appropriate for outpatient management at this time. HPI General Mode of arrival: ambulatory. Date/Time Provider Initiated Documentation: 09/11/19 08:09. Limitations to Documentation: no limitations. Information obtained by: patient. History of Present Illness 29 year old M presents to the emergency department with the chief complaint of Left anterior rib pain. Trauma 08/26, described as moderate, Quality is described as aching, and is localized to the chest and left. Patient reports no radiation. Patient started experiencing this day(s) and it has been constant. Rest improves symptom(s), Movement worsens symptoms . Patient notes denies shortness of breath. Patient did receive the following treatments prior to arrival, none Related Data Home Medications Medication Instructions Recorded Confirmed ibuprofen [IBU] 800 mg PO TID #30 tab 08/27/19 09/11/19 lorazepam 1 mg PO BID PRN #10 tab 08/27/19 09/11/19 oxycodone 5 - 10 mg PO Q4H PRN PRN #30 tab 08/27/19 09/11/19 acetaminophen [Tylenol] 650 mg PO Q4H PRN PRN #0 tab 08/29/19 09/11/19 polyethylene glycol 3350 17 g PO DAILY PRN PRN #0 ea 08/29/19 09/11/19 Previous Rx's Medication Instructions Recorded ibuprofen [IBU] 800 mg PO TID #30 tab 08/27/19 lorazepam 1 mg PO BID PRN #10 tab 08/27/19 oxycodone 5 - 10 mg PO Q4H PRN PRN #30 tab 08/27/19 acetaminophen [Tylenol] 650 mg PO Q4H PRN PRN #0 tab 08/29/19 polyethylene glycol 3350 17 g PO DAILY PRN PRN #0 ea 08/29/19 Allergies Allergy/AdvReac Type Severity Reaction Status Date / Time Sulfa (Sulfonamide Allergy Unknown Unverified 09/11/19 08:02 Antibiotics) gabapentin AdvReac Mild passes out Unverified 09/11/19 08:02 General Stated Complaint: Chest/Rib DOTTIE: 3 Review of Systems Narrative: 6 systems reviewed and otherwise negative. Began with twisting movement. No fall or other injury. The low back has been improving, he does continue to take acetaminophen, ibuprofen, oxycodone. [facility] Medical History Fracture of body of vertebra (Acute) T9/10, L2/3 Opiate addiction (Chronic) Social History Smoking/Tobacco Use Status: Current every day Tobacco Type: cigarettes Alcohol Intake: never Drug use: Occasionally Substance use type: former substance user Do you feel safe at home: Yes Do you feel safe in your relationship?: Yes Exam Narrative Exam Narrative: GEN: awake, alert, oriented 3. Pleasant, well groomed, interactive. HEAD: Normocephalic, atraumatic ENT: Mucous membranes moist, oropharynx unremarkable, External ear exam unremarkable EYES: PERRL, EOMI NECK: Full ROM, no BERTHA, no menigismus CHEST/RESP: Tender left posterior and left anterior lower ribs, no crepitus, clear to auscultation bilateral, no wheeze/rhonchi/rales CARDIOVASCULAR: RRR, no murmur, rub joao. 2+ Rad pulse bilateral ABDOMEN: Soft, nontender, no mass. +Bowel sounds EXT: Full ROM, no edema, no rash Neuro: Grossly normal neurologic exam, conversant, interactive. Psych: Speech fluent, thoughts congruent, affect normal Course Vital Signs Vital signs: Vital Signs Temperature 36.8 C 09/11/19 07:59 Pulse 77 09/11/19 07:59 Respiratory Rate 18 09/11/19 07:59 Blood Pressure 139/79 09/11/19 07:59 Pulse Oximetry 97 09/11/19 07:59 Temperature 36.8 C 09/11/19 07:59 Temperature Source Tympanic 09/11/19 07:59 Pulse 77 09/11/19 07:59 Respiratory Rate 18 09/11/19 07:59 Respiratory Effort 09/11/19 08:04 Respiratory Depth Normal 09/11/19 08:04 Respiratory Pattern Normal 09/11/19 08:04 Blood Pressure 139/79 09/11/19 07:59 Blood Pressure Position Sitting 09/11/19 07:59 Pulse Oximetry 97 09/11/19 07:59 Oxygen Delivery Method Room Air 09/11/19 07:59 Oxygen Flow Rate 0 09/11/19 07:59 Pain Level 7 09/11/19 08:04
--- NOTE | 2019-09-11 08:41 | DI.RAD_ITS ---
EXAM: XR RIBS LT W PA LAT CHEST INDICATION: L ant rib pain, trauma 08/26 (CT). COMPARISON: XR CHEST 2V PA LATERAL from 08/27/2019 TECHNIQUE: 2D digital imaging was performed. FINDINGS: Heart size is normal. The lungs are clear. No pneumothorax, infiltrate or effusion is seen. A vin er was placed over the lower left ribs in the area of the patient's pain. No rib fracture is visible . There is an old T9 vertebral body deformity. IMPRESSION: No acute abnormality.
--- NOTE | 2019-09-11 09:14 | DI.VRAD_ITS ---
PROCEDURE INFORMATION: Exam: XR Left Ribs Exam date and time: 09/11/2019 8:41 AM Age: 29 years old Clinical indication: Left-sided chest pain; Other: L ant rib pain trauma; Patient HX: Prior CT 08/26/2019 chest abd pelvis TECHNIQUE: Imaging protocol: XR Left ribs. Views: 2 views. COMPARISON: XR CHEST 2V PA LATERAL 08/27/2019 8:57 AM FINDINGS: Bones/joints: The submitted view of the chest is unremarkable. No acute cardiopulmonary process. The ribs are grossly normal. No acute or chronic fracture appreciated. No lytic process or expansile process. No rib notching. Soft tissues: Normal. IMPRESSION: Unremarkable ribs. PROCEDURE INFORMATION: Exam: XR Chest, 2 Views Exam date and time: 09/11/2019 8:41 AM Age: 29 years old Clinical indication: Left-sided chest pain; Other: L ant rib pain trauma; Patient HX: Prior CT 08/26/2019 chest abd pelvis TECHNIQUE: Imaging protocol: XR of the chest Views: 2 views. COMPARISON: XR CHEST 2V PA LATERAL 08/27/2019 8:57 AM FINDINGS: Lungs: Unremarkable. No consolidation. Pleural space: Unremarkable. No pleural effusion. No pneumothorax. Heart/Mediastinum: Unremarkable. No cardiomegaly. Bones/joints: Unremarkable. IMPRESSION: No acute findings. Dictated and Authenticated by: Ayo Elder MD. Ordering:VIRGINIE Brooks MD
[2019-09-11] MEDS: oxyCODONE 10 MG TAB PO (09:32)
[2019-09-11] MEDS: Lidocaine 5% Patch 1 PATCH TP (09:33)
== END 2019-09-11 09:36 | disposition home or self-care (01) ==
PROVIDERS: Emergency Provider Emergency Medicine; PCP Family Medicine
DX: S29.011A Strain of muscle and tendon of front wall of thorax, initial encounter (principal); W13.2XXA Fall from, out of or through roof, initial encounter
CPT/HCPCS: 99283; 71046; 71100

== ENCOUNTER 2019-09-25 10:52 | Outpatient (CLI) | payer OTHER, SELFPAY ==
--- NOTE | 2019-09-25 16:00 | DI.RAD_ITS ---
EXAM: XR SPINE COMPLETE 1V CLINICAL HISTORY: eval fractures TECHNIQUE: COMPARISON: [facility] ONLY from 08/20/2009 CT THORACIC LUMBAR SPINE REC from 08/26/2019 CT THORACIC LUMBAR SPINE REC from 08/26/2019 XR RIBS LT W PA LAT CHEST from 09/11/2019 FINDINGS: Two lateral views were obtained of the thoracic and lumbar spine, apparent old compression fractures of T9-L2 and L3, no change in alignment in comparison with prior CT of 08/26/2019. IMPRESSION:
== END 2019-09-25 11:12 ==
PROVIDERS: PCP Family Medicine; Visit Provider Student in an Organized Health Care Education/Training Program
DX: S22.070D Wedge compression fracture of T9-T10 vertebra, subsequent encounter for fracture with routine healing (principal); S32.020D Wedge compression fracture of second lumbar vertebra, subsequent encounter for fracture with routine healing; S32.030D Wedge compression fracture of third lumbar vertebra, subsequent encounter for fracture with routine healing
CPT/HCPCS: 72081